=== PATIENT | male | born 1940 | race Caucasian/White ===

== ENCOUNTER 2024-10-19 18:45 | Inpatient (IN) | payer MEDICARE, BC, SELFPAY ==
[2024-10-19] VITALS (21 sets, daily range): BP systolic 92–139; BP diastolic 57–110; BMI 36.3
[2024-10-19] MEDS: LOW STRENGTH ASPIRIN 324 MG PO (07:20)
--- NOTE | 2024-10-19 09:56 | ITS.CL.CATH ---
Lathe Machinist - Catheterization
Cardiac Catheterization
Procedure Report:
RIGHT HEART CATHETERIZATION
Date of Procedure: October 19, 2023
Referring: Malik SAMUEL
Referring Physician: Dr. Porfirio Cummins
Indication: The patient is an 84-year-old man with a past medical history significant for prostate cancer who is referred for coronary angiography in preparation for TAVR. The patient has severe aortic stenosis and recently has developed increasing
exertional dyspnea over the past couple months. Over the last 3 weeks he has developed worsening lower extremity swelling as well as a nonproductive cough. He was given low-dose Lasix at his last office visit and says it has not helped.
ACCESS: The patient was prepped and draped in usual sterile fashion. A 5 [place]uvian sheath was then placed in the right brachial vein using the same technique.
HEMODYNAMIC FINDINGS (mmHg):
RA(a,v,m): 20, 20, 18
RV(s/d,EDP): 72/14, 17
PA(s/d/m): 72/36, 50
PCWP(a,v,m): 34, 46, 40
Oxygen Saturations (mg/dl):
PA: 53% on room air
LV: 93% by pulse oximetry on room air
Hbg (g/dL): 14.0
Pascual
CO (liters/minute): 3.3
CI (liters/minute/m2): 1.5
Fluoroscopy Time (min): 2.5
Radiation Dose (mGy): 36
DAP (Gy.cm2): 3.7
Closure device: None
Complications: None
ASSESSMENT:
1: Decompensated heart failure with severe pulmonary hypertension and elevated left ventricular filling pressures with a wedge of 40 with large V waves.
CONCLUSIONS and RECOMMENDATIONS:
1: Admit for IV diuresis. Will hold off on coronary angiography and tentatively plan to return for coronary angiography after 2 days of IV diuresis.
Sajan Black M.D.
Copy to: Itz SAMUEL
--- NOTE | 2024-10-19 10:45 | PTCARENOTE ---
1011-patient bradycardic, heart rate 30's-Wenckebach. Patient asymptomatic. [employer] notified and aware.
1015-patient had a 3 beat run of VT. Asymptomatic.
1018-Patient began to cough and heart rate dropped-EKG obtained. [employer] notified and aware. At bedside.
Gallo Black in to see patient while in radial lounge. No new orders at this time.
1100-Dr. Ibanez, admitting MD at bedside.
--- NOTE | 2024-10-19 14:14 | HPS.HSE ---
Family Physician
-
Family Physician: NOT KNOW UNKNOWN - PT DOES
Chief Complaint
-
Shortness of breath
History of Present Illness
84 y/o male with past medical history of hypertension and benign prostatic hyperplasia, who was recently found to need a TAVR, had pre-TAVR evaluation, more specifically, cardiac cath today which showed decompensated heart failure with severe
pulmonary hypertension and elevated left ventricular filling pressures with a wedge of 40 with large V waves. Patient has been having edema and shortness of breath, denied any chest pain or any complaints when he was seen.
Medical History
Past Medical History
Past Medical History: Reports HTN and Other (BPH)
Past Surgical History: Reports None
Social History
Tobacco: Former Smoker
Alcohol: None
Drug: None
Family History
Family History: Not pertinent
Allergies / Home Medications
Allergies reflects when Allergies were last updated in [facility].
Home Medications with original date entered in [facility]
Allergy/Medication List:
Allergies
Allergy/AdvReac Type Severity Reaction Status Date / Time
No Known Drug Allergies Allergy Unknown Verified 10/19/24 06:59
Home Medications
L-Qgcrni-Plmmcue 600 mg PO DAILY 10/19/24
Vision Essentials 1 tab PO DAILY 10/19/24
alprazolam 0.5 mg tablet 0.5 mg PO BID PRN anxiety 10/19/24
ascorbic acid (vitamin C) 500 mg tablet (Vitamin C) 1,500 mg PO DAILY 10/19/24
benzonatate 200 mg capsule 200 mg PO TID PRN cough 10/19/24
cholecalciferol (vitamin D3) 25 mcg (1,000 unit) capsule (Vitamin D3) 12.5 mcg PO DAILY 10/19/24
cod liver oil 1 tab PO QPM 10/19/24
finasteride 5 mg tablet 5 mg PO DAILY 10/19/24
furosemide 40 mg tablet 40 mg PO DAILY PRN swelling 10/19/24
lactobacillus combination no.8 3 billion cell capsule 1 cell PO QPM 10/19/24
loratadine 10 mg tablet 10 mg PO DAILY 10/19/24
prednisone 20 mg tablet 20 mg PO DAILY 10/19/24
quercetin 500 mg capsule 800 mg PO QPM 10/19/24
tamsulosin 0.4 mg capsule 0.4 mg PO QPM 10/19/24
vit A 7,160 unit-C 113 mg-E 100 prpv-jupr-lpwbnu tablet,delayed rel. 1 tab PO QPM 10/19/24
vit A-vit J-albp-rdcfbsau lozenges (Zinc (with Vitamins A and C) Lozenges) 1 debo PO DAILY 10/19/24
Review of Systems
-
A 12 point ROS was completed and negative except as noted: Yes
Physical Exam
Vital Signs
Vital Signs
Temp Pulse Resp BP Pulse Ox
97.6 F 71 18 121/75 97
10/19/24 06:26 10/19/24 11:41 10/19/24 06:26 10/19/24 12:43 10/19/24 11:41
Physical Exam
General: No Apparent Distress and Comfortable
HEENT: NormoCephalic and Moist mucous membranes
Respiratory: Decreased Breath Sounds
Cardiac: S1/S2 and Regular Rhythm
GI: Soft, Non Tender and Normal Bowel Sounds
Musculoskeletal: Edema, Left Lower Extremity and Edema, Right Lower Extremity
Skin: Warm and Dry
Neuro: Awake, Alert and AO x 3
Psych: Calm and Intact Judgment/Insight
Impression/Plan
-
Assessment/Plan
Decompensated heart failure with severe pulmonary hypertension and elevated left ventricular filling pressures with a wedge of 40 with large V waves
-Cath done (for pre-TAVR evaluation) today by Dr. Black which showed the findings above
-Continue IV diuresis
-Daily weights, I's and O's
-Cardiology already consulted
-Repeat cath anticipated in 2 days after diuresis, per Dr. Black
Aortic Stenosis
-Avoid Hypotension
Hypertension
-On Finasteride and Flomax below
-Used to be on Lisinopril, but no longer is on it due to hypotension
Benign Prostatic Hyperplasia
-Continue home Finasteride
-Continue home Flomax
DVT Prophylaxis: Lovenox
Code Status: Full Code
[2024-10-19] MEDS: LASIX 20 MG IV (16:10)
--- NOTE | 2024-10-19 17:34 | PTCARENOTE ---
1615-monitoring manager reading AFIb. Heart rate irregular. EKG obtained. Tele-SA with marked SA with 1st degree AV block with occasional PVC's. MD notified via TT. No new orders.
[2024-10-19 18:58] LABS: Blood Urea Nitrogen 34 mg/dl (9-20); Calcium 10.6 mg/dl (8.4-10.2); Carbon Dioxide 31 mmol/L (22-30); Chloride 97 mmol/L (98-107); Estimated Creatinine Clearance 60 ml/min; Glucose 165 mg/dl (70-99); Potassium 4.5 mmol/L (3.5-5.1); Sodium 134 mmol/L (135-145); eGFR > 60.00
[2024-10-19] MEDS: FLOMAX 0.4 MG PO (20:21)
[2024-10-19] MEDS: VISBIOME 1 CAP PO (20:22)
[2024-10-19] MEDS: DELTASONE 40 MG PO (20:22)
[2024-10-19] MEDS: OCUVITE SOFTGEL 1 CAP PO (20:22)
[2024-10-19] MEDS: XANAX 0.5 MG PO (22:32)
--- NOTE | 2024-10-20 01:36 | PTCARENOTE ---
Patient AAOx4 and ambulating self in room, and denies any SOB. Sating 96-97% RA, and has an occasional moist cough. Lungs clear throughout. Tele monitor shows Sinus rodrigo w/ 1st AV block and sinus arrhythmia w/ occasional PVCs. HR in the 50-60's at
rest. Tele monitor alarms, and HR briefly drops to 38 and goes back up to baseline HR. Patient laying in bed, asymptomatic. Right brachial dressing C/D/I, and + right radial pulse. Patient voiding in urinal w/out difficulty. POC ongoing. Call reynolds
within reach.
[2024-10-20 04:06] VITALS: BP 104/74
[2024-10-20 04:13] VITALS: BMI 34.4
[2024-10-20 05:04] LABS: Blood Urea Nitrogen 32 mg/dl (9-20); Calcium 10.1 mg/dl (8.4-10.2); Carbon Dioxide 28 mmol/L (22-30); Chloride 100 mmol/L (98-107); Estimated Creatinine Clearance 74 ml/min; Glucose 145 mg/dl (70-99); HDL Cholesterol 62 mg/dl; LDL Cholesterol, Calculated 77 mg/dl; Magnesium 2.4 mg/dl (1.6-2.3); Potassium 4.7 mmol/L (3.5-5.1); Sodium 135 mmol/L (135-145); Total Cholesterol 154 mg/dl (50-199); Triglyceride 77 mg/dl (10-149); Very Low Density Lipoprotein 15 mg/dl (0-30); eGFR > 60.00
[2024-10-20 05:05] LABS: Hematocrit 42.8 % (39.0-52.0); Hemoglobin 14.2 g/dL (13.0-18.0); Mean Corp Hgb Conc. 33.2 g/dL (33.0-37.0); Mean Corpuscular Hgb 31.1 pg (27.0-31.0); Mean Corpuscular Volume 93.9 fL (80.0-94.0); Mean Platelet Volume 10.5 fL (7.4-10.4); Platelet Count 241 10^3/uL (130-400); Red Blood Cell Count 4.56 10^6/uL (4.70-6.10); Red Cell Dist. Width 15.7 % (11.5-14.5); White Blood Cell Count 8.2 10^3/uL (4.8-10.8)
--- NOTE | 2024-10-20 06:53 | W.PN.HOSP.TC ---
Today's Communication/Plan
-
.
Assessment / Plan
Assessment / Plan
Physical Exam
General: No Apparent Distress and Comfortable
HEENT: NormoCephalic and Moist mucous membranes
Respiratory: Decreased Breath Sounds
Cardiac: S1/S2 and Regular Rhythm
GI: Soft, Non Tender and Normal Bowel Sounds
Musculoskeletal: Edema, Left Lower Extremity and Edema, Right Lower Extremity
Skin: Warm and Dry
Neuro: Awake, Alert and AO x 3
Psych: Calm and Intact Judgment/Insight
84-year-old man with a past medical history significant for prostate cancer who was referred for coronary angiography in preparation for TAVR. The patient has severe aortic stenosis and recently has developed increasing exertional dyspnea over the
past couple months. Over the last 3 weeks he has developed worsening lower extremity swelling as well as a nonproductive cough. He was given low-dose Lasix at his last office visi.
#Acute new onset heart failure with preserved EF presented as acute decompensated heart failure with severe pulmonary hypertension and elevated left ventricular filling pressures with a wedge of 40 with large V waves
-Cath done 10/19/24 (for pre-TAVR evaluation) today by Dr. Black which showed the findings above
-Continue IV diuresis
-Daily weights, I's and O's
-Cardiology already consulted
-Repeat cath anticipated in 2 days after diuresis, per Dr. Black
Hyponatremia
Hypercalcemia, resolved
Aortic Stenosis
-Avoid Hypotension
Hypertension
Hx of Prostate cancer/ Benign Prostatic Hyperplasia
-On Finasteride and Flomax below
-Used to be on Lisinopril, but no longer is on it due to hypotension
-Continue home Finasteride
-Continue home Flomax
Total time spent to see the patient, examine the patient, review data and lab results, discuss treatment plan with patient, nursing staff around 55 minutes
Anticipated Discharge: 24 - 48 hours
Subjective/Interval History
-
Date of Service: October 20, 2024
No chest pain
No sob
Objective Data
-
Labs:
Laboratory Results
10/19/24 10/20/24
18:33 04:12
WBC 8.2
Hgb 14.2
Hct 42.8
Plt Count 241
Sodium 134 L 135
Potassium 4.5 4.7
Chloride 97 L 100
Carbon Dioxide 31 H 28
BUN 34 H 32 H
Creatinine 1.0 0.8
Glucose 165 H 145 H
Calcium 10.6 H 10.1
Vital Signs:
Vital Signs
Temp Pulse Resp BP Pulse Ox
97.9 F 59 20 104/74 94
10/20/24 04:06 10/20/24 05:00 10/20/24 04:06 10/20/24 04:06 10/20/24 04:06
I&O
10/18/24 10/19/24 10/20/24
06:59 06:59 06:59
Intake Total 840 / 840
Output Total 4050 / 4050
Balance -3210 / -3210
[2024-10-20 07:07] VITALS: BP 121/73
[2024-10-20] MEDS: PROSCAR 5 MG PO (08:09)
[2024-10-20] MEDS: LOW STRENGTH ASPIRIN 81 MG PO (08:09)
[2024-10-20] MEDS: CLARITIN 10 MG PO (08:10)
[2024-10-20] MEDS: VITAMIN C 1500 MG PO (08:11)
[2024-10-20] MEDS: DELTASONE 20 MG PO (08:11)
[2024-10-20] MEDS: LASIX 20 MG IV ×2 (09:06→16:04)
--- NOTE | 2024-10-20 09:47 | PTCARENOTE ---
Rec'd pt this shift awake and alert sitting in chair. Pt denies pain, denies sob. AM meds given. Pt NSR on monitor. See worklist for VS/I and O and assessments.
--- NOTE | 2024-10-20 10:34 | CARDSERVDEF ---
Echocardiogram with Definity completed after protocol screening completed. Allergies verified.
Patent IV site: __Left arm cephalic 20 G PC ( in patient)___
IV site flushed with 0.9% NaCl pre and post administration.
Diluted bolus method utilized to enhance visualization of ventricular claros.
Total volume given: 4____ mL
Patient tolerated all procedures well without complications.
[2024-10-20] MEDS: VITAMIN D3 (cholecalciferol) 12.5 MCG PO (11:02)
--- NOTE | 2024-10-20 11:37 | W.PN.CARDCBS ---
Addendum entered and electronically signed by Vasquez Mcgrath MD 10/20/24 12:29:
I saw and examined the patient.
The Hip Hop Artist's note was reviewed and I agree with the note.
Comment:
GEN: No distress, awake, Ox3
HEENT: supple, anicteric, mmm
LUNGS: CTA, no wheezes/rales
CV: Reg, S1/S2, 2/6 syst LSB, S3+
ABD: soft, BS+, NT/ND
EXT: ++ edema
NEURO: Gross non-focal
SKIN: No rash
Plan:
He is diuresing well. Continue Lasix 20 mg IV twice daily today and then 40 mg daily upon discharge.
Continue Coreg 3.125 mg p.o. twice daily. Plan is for left heart catheterization in AM.
Will check on cost of Farxiga.
Creatinine is stable at 0.8. Check echo today.
Will need CT scan as outpatient after cardiac cath for TAVR evaluation.
Original Note:
Today's Communication / Plan
-
Cont Lasix 20 mg IV BID and then likely Lasix 40 mg PO daily upon d/c
Starting Coreg 3.125 mg BID
Check HgbA1c
Check cost of Farxiga
Eventually add lisinopril following acute diuresis
LHC in AM
Impression / Plan
-
PCP: Dr. Itz Nash
Cardiology: Dr. Cummins
Impression:
Admitted after RH for acute HFpEF 10/19/24
EF 50-55% by echo 08/09/24
Severe peak/mean 67.9/45.3 by echo at [facility] 08/09/24
HTN
BPH
h/o prostate cancer
Hyperglycemia
Echo 08/09/24: GVH study, EF 50 to 55%, mild to moderate concentric LVH, normal RV size and function, normal LA/RA, severe with peak/mean 67.9/45.3 mmHg and NICKI 0.58 cm sq
Echo 10/20/24: Report pending
Plan:
-Patient had an elective R/LHC scheduled at on 10/19/2024, but upon arrival he appeared to be in acute HFpEF and had RHC only which showed PCWP of 40 mmHg and so patient was admitted for acute HF and the LHC was deferred. R/LHC as part of TAVR
workup.
-Patient weight recorded at 221 lbs on day of admission 10/19/2024 and weight is down to 209 lbs on 10/20/2024, this might be possible as patient is -4 L in the last 24 hours with Lasix 20 mg IV BID.
-Med rec lists Lasix 40 mg PO daily prior to admission. Patient says Lasix was started just prior to planned cath and subsequent admission, but that he did not notice any increase in urine output and describes significant bloating and bendopnea.
Based on impressive diuresis patient can probably continue with Lasix 40 mg PO daily upon d/c.
-Patient was not taking cardioselective beta-josefina prior to admission. Will add Coreg 3.125 mg BID
-Patient was not taking HAYDE/ARB prior to admission
-Patient was not taking SGLT2 prior to admission. Patient has been hyperglycemia throughout admission. Check HgbA1c, no known diagnosis of DM 2. Would likely benefit from addition of Farxiga 10 mg daily. Will ask CM to check on cost.
-LDL 77. Patient was not taking a statin prior to admission. Pending results of C could add statin.
-Plan is for [facility] 10/21/24
-52 min in coordination of care and face to face
Progress Note - Parole Agent
Subjective
Date of Service: October 20, 2024
He feels dramatically better, bloating, bendopnea and LE edema have all improved.
Objective
Labs:
10/20/24 04:12
10/20/24 04:12
Labs
Hgb 14.2 g/dL (13.0-18.0) 10/20/24 04:12
Hct 42.8 % (39.0-52.0) 10/20/24 04:12
Plt Count 241 10^3/uL (130-400) 10/20/24 04:12
Sodium 135 mmol/L (135-145) 10/20/24 04:12
Potassium 4.7 mmol/L (3.5-5.1) 10/20/24 04:12
BUN 32 mg/dl (9-20) H 10/20/24 04:12
Creatinine 0.8 mg/dL (0.7-1.3) 10/20/24 04:12
Glucose 145 mg/dl (70-99) H 10/20/24 04:12
Vital Signs and I&O:
Vital Signs
Temp Pulse Resp BP Pulse Ox
97.6 F 74 20 121/73 97
10/20/24 07:04 10/20/24 09:06 10/20/24 07:04 10/20/24 09:06 10/20/24 09:35
Vital Signs
Temp Pulse Resp BP Pulse Ox
97.6 F 74 20 121/73 97
10/20/24 07:04 10/20/24 09:06 10/20/24 07:04 10/20/24 09:06 10/20/24 09:35
Intake & Output
10/18/24 10/19/24 10/20/24 10/21/24
06:59 06:59 06:59 06:59
Intake Total 840 / 840 680 / 680
Output Total 4050 / 4050 1680 / 1680
Balance -3210 / -3210 -1000 / -1000
Physical Exam
Physical Exam
GEN: NAD. AAOx3
HEENT: EOMI, MMM
LUNGS: RA. No audible wheeze
CV: SR on tele.
ABD: ND
EXT: +2 B/L LE edema
NEURO: Gross non-focal
SKIN: No rash
[2024-10-20 11:45] VITALS: BP 107/73
--- NOTE | 2024-10-20 11:55 | CM ---
CM following for DC planning needs.
Met w/ patient at bedside to complete initial assessment.
Pt. resides w/ spouse in a private home. He is functionally indep. at baseline w/ ADLs, mobility without the use of any assisted device.
Pt. anticipates to return back for a TAVR procedure. We discussed this briefly + CM role.
Pt. has RX plan and uses [facility] in [place] for prescription needs.
Antic. DC plan is for home without needs.
Will cont. to follow.
--- NOTE | 2024-10-20 13:24 | CM ---
Artem Orosco thru patient's pharmacy, [facility] in [phone]. Estimated cost is $7/mo.
TT to ANNIE to update
[2024-10-20 15:22] LABS: Glycohemoglobin (HgbA1c) 6.3 % (4.0-5.6)
[2024-10-20 15:52] VITALS: BP 98/65
[2024-10-20] MEDS: VISBIOME 1 CAP PO (17:16)
[2024-10-20] MEDS: OCUVITE SOFTGEL 1 CAP PO (17:16)
[2024-10-20] MEDS: FLOMAX 0.4 MG PO (17:16)
[2024-10-20 19:47] VITALS: BP 94/60
[2024-10-20] MEDS: XANAX 0.5 MG PO (21:06)
[2024-10-20 22:02] VITALS: BP 100/61
[2024-10-21] VITALS (9 sets, daily range): BP systolic 96–114; BP diastolic 47–86; BMI 33.3
[2024-10-21 05:42] LABS: Blood Urea Nitrogen 34 mg/dl (9-20); Calcium 10.4 mg/dl (8.4-10.2); Carbon Dioxide 29 mmol/L (22-30); Chloride 99 mmol/L (98-107); Estimated Creatinine Clearance 64 ml/min; Glucose 110 mg/dl (70-99); Magnesium 2.6 mg/dl (1.6-2.3); Potassium 4.3 mmol/L (3.5-5.1); Sodium 134 mmol/L (135-145); eGFR > 60.00
--- NOTE | 2024-10-21 06:39 | W.PN.HOSP.TC ---
Today's Communication/Plan
-
Cath today, NPO this morning
Assessment / Plan
Assessment / Plan
Physical Exam
General: No Apparent Distress and Comfortable
HEENT: NormoCephalic and Moist mucous membranes
Respiratory: Decreased Breath Sounds
Cardiac: S1/S2 and Regular Rhythm
GI: Soft, Non Tender and Normal Bowel Sounds
Musculoskeletal: Edema, less Left Lower Extremity and Edema, less Right Lower Extremity
Skin: Warm and Dry
Neuro: Awake, Alert and AO x 3
Psych: Calm and Intact Judgment/Insight
84-year-old man with a past medical history significant for prostate cancer who was referred for coronary angiography in preparation for TAVR. The patient has severe aortic stenosis and recently has developed increasing exertional dyspnea over the
past couple months. Over the last 3 weeks he has developed worsening lower extremity swelling as well as a nonproductive cough. He was given low-dose Lasix at his last office visi.
#Acute new onset heart failure with preserved EF presented as acute decompensated heart failure with severe pulmonary hypertension and elevated left ventricular filling pressures with a wedge of 40 with large V waves
-Cath done 10/19/24 (for pre-TAVR evaluation) by Dr. Black
-Continue IV diuresis
-Daily weights, I's and O's
- lost weight > 7 kg
-Cardiology already consulted
-Repeat cath 10/21, NPO this morning
#Hyponatremia
#Hypercalcemia, mild
Recommend OP work up
#Aortic Stenosis
-Avoid Hypotension
# primary Hypertension
# Hx of Prostate cancer/ Benign Prostatic Hyperplasia
-On Finasteride and Flomax below
-Used to be on Lisinopril, but no longer is on it due to hypotension
-Continue home Finasteride
-Continue home Flomax
Total time spent to see the patient, examine the patient, review data and lab results, discuss treatment plan with patient, nursing staff around 55 minutes
Anticipated Discharge: Within 24 hours
Subjective/Interval History
-
Date of Service: October 21, 2024
no sob
No chest pain
Objective Data
-
Labs:
Laboratory Results
10/21/24
04:30
Sodium 134 L
Potassium 4.3
Chloride 99
Carbon Dioxide 29
BUN 34 H
Creatinine 0.9
Glucose 110 H
Calcium 10.4 H
Vital Signs:
Vital Signs
Temp Pulse Resp BP Pulse Ox
98.3 F 69 16 103/47 94
10/21/24 04:24 10/21/24 05:00 10/21/24 04:24 10/21/24 04:24 10/21/24 04:24
I&O
10/19/24 10/20/24 10/21/24
06:59 06:59 06:59
Intake Total 840 / 840 1160 / 1160
Output Total 4050 / 4050 4080 / 4080
Balance -3210 / -3210 -2920 / -2920
[2024-10-21] MEDS: LOW STRENGTH ASPIRIN 81 MG PO (09:14)
[2024-10-21] MEDS: LASIX 20 MG IV ×2 (09:15→17:47)
[2024-10-21] MEDS: PROSCAR 5 MG PO (09:15)
[2024-10-21] MEDS: DELTASONE 20 MG PO (09:15)
[2024-10-21] MEDS: FLUSH (NSS) 2 FLUSH IV ×2 (09:15→17:47)
--- NOTE | 2024-10-21 14:22 | PTCARENOTE ---
Report given to [place] in the dental lab technician. Pt taken in his bed to lab associate, at bedside. Plan of care ongoing.
--- NOTE | 2024-10-21 16:03 | ITS.CL.CATH ---
Blockers Skiver - Catheterization
Cardiac Catheterization
Procedure Report:
RIGHT AND LEFT HEART CATHETERIZATION
Date of Procedure: October 21, 2023
Procedures performed:
1: Coronary angiography
2: Left ventricular hemodynamic assessment
3: Right heart catheterization
Referring: Malik SAMUEL
Referring Physician: Dr. Porfirio Cummins
Indication: The patient is an 84-year-old man with a past medical history significant for prostate cancer who is referred for coronary angiography in preparation for TAVR. The patient has severe aortic stenosis and recently has developed increasing
exertional dyspnea over the past couple months. Over the last 3 weeks he has developed worsening lower extremity swelling as well as a nonproductive cough. He was given low-dose Lasix at his last office visit and says it has not helped.
ACCESS: The patient was prepped and draped in usual sterile fashion. A 6 German sheath was placed in the right radial artery using the Seldinger over the wire technique. A 5 German sheath was then placed in the right brachial femoral vein using
the same technique.
HEMODYNAMIC FINDINGS (mmHg):
RA(a,v,m): 9, 6, 5
RV(s/d,EDP): 53/4, 7
PA(s/d/m): 53/20, 33
PCWP(a,v,m): 25, 32, 25
LV(s/d,EDP): 145/8, 16
Ao(s/d,m): 98/57, 71
Mean aortic valve gradient on pullback 35 mmHg
Oxygen Saturations (mg/dl):
PA: 66% on 2 L of oxygen by nasal cannula
LV: 95% on 2 L of oxygen by nasal cannula
Cardiac Output/Index (l/min / l/min/m2):
Estimated Pascual Method: 3.3 / 1.7
VALVE HEMODYNAMICS:
No significant aortic or mitral valve stenosis.
ANGIOGRAPHIC FINDINGS:
Single-plane Left Ventriculography in [place] Projection: Not done. Echo performed this admission.
Coronary Angiography:
Dominance: Right
Left Main: Normal
Left Anterior Descending: The left anterior descending artery is a medium to large caliber vessel that gives rise to 2 major medium caliber diagonal branches. These vessels have mild luminal irregularities with no focal obstructive disease and
normal flow.
Left Circumflex: The left circumflex is a medium caliber nondominant system that gives rise to 2 large obtuse marginal branches which are widely patent.
Right Coronary: The right coronary artery is a large-caliber dominant vessel that gives rise to a medium caliber posterior descending artery and small posterior left ventricular branch. These vessels appear angiographically normal.
Fluoroscopy Time (min): 6.0
Radiation Dose (mGy): 373
DAP (Gy.cm2): 46
Closure device: None. A TR band was applied for hemostasis at the right wrist. The brachial vein groin sheath will be pulled with manual pressure for hemostasis.
Complications: None.
ASSESSMENT:
1: Mild nonobstructive coronary artery disease.
2: Moderately elevated pulmonary pressures improved post diuresis with mildly elevated left ventricular filling pressures.
3: Severe aortic valvular stenosis.
CONCLUSIONS and RECOMMENDATIONS:
1: Proceed with TAVR evaluation.
2: Continue IV diuresis overnight and plan to send the patient home on Lasix 40 mg daily following daily weights.
Sajan Black M.D.
Copy to: Malik SAMUEL
--- NOTE | 2024-10-21 16:12 | CONSULT.STRU ---
Consultation
-
Date/Time Consultation Requested: 10/21/2024
Date/Time Consultation Performed: 10/21/2024
Requesting Provider: Sajan Black MD
Performing Provider: LIZZIE Kerr
Reason for Consultation: /TAVR
Patient History
Physicians
Family Physician: LIZZIE Gunter
Outpatient Computational Geneticist: Porfirio Cummins MD
Primary Computational Geneticist: Porfirio Cummins MD
History of Present Illness
Mr. Russ is a very pleasant 84-year-old man with a past medical history significant for prostate cancer who was referred for coronary angiography in preparation for TAVR. The patient has severe aortic stenosis and recently developed increasing
exertional dyspnea over the past couple months. Over the last 3 weeks he has developed worsening lower extremity swelling as well as a nonproductive cough. He was given low-dose Lasix at his last office visit and says it has not helped. Patient
presented to the catheterization lab in decompensated heart failure, the coronary angiography was placed on hold and the patient was admitted for IV diuresis. Echocardiogram was repeated and is significant for EF 40-45%, AV P/M 52/35, SV 47, DI 0.3,
no AI, MAC, mild MR, Mild-moderate TR, PAP 49. Discussed the pathophysiology and treatment options of aortic stenosis including SAVR and TAVR. Explained the TAVR evaluation process comprising of CT scan, CT surgical consult, dental clearance, and a
heart team discussion. TAVR booklet, contact information, prescriptions, and appointments given to patient. Allowed for and answered questions at bedside..
Past Medical History
Past Medical History: Cancer (prostate), CHF, HTN, Valvular Disease (aortic stenosis) and Other (pneumonia d/t COVID, severe sepsis, acute UTI)
Past Surgical History
Past Surgical History: Tonsilectomy
Family History
Mother: N/A
Father: N/A
Social History
Alcohol: Occasional
Drug: None
Tobacco: Former Smoker
Personal:
Living: With Spouse
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
Allergies
Allergy/AdvReac Type Severity Reaction Status Date / Time
No Known Drug Allergies Allergy Unknown Verified 10/19/24 06:59
Home Medications
�Medication �Instructions �Recorded �Confirmed �Type
H-Whwjlb-Tzsjatl 600 mg PO DAILY 10/19/24 10/19/24 History
Vision Essentials 1 tab PO DAILY 10/19/24 10/19/24 History
alprazolam 0.5 mg tablet 0.5 mg PO BID PRN anxiety 10/19/24 10/19/24 History
ascorbic acid (vitamin C) 500 mg 1,500 mg PO DAILY Supplement 10/19/24 10/19/24 History
tablet (Vitamin C)
benzonatate 200 mg capsule 200 mg PO TID PRN cough 10/19/24 10/19/24 History
cholecalciferol (vitamin D3) 25 12.5 mcg PO DAILY Supplement 10/19/24 10/19/24 History
mcg (1,000 unit) capsule (Vitamin
D3)
cod liver oil 1 tab PO QPM 10/19/24 10/19/24 History
finasteride 5 mg tablet 5 mg PO DAILY Urinary Issue 10/19/24 10/19/24 History
furosemide 40 mg tablet 40 mg PO DAILY PRN swelling 10/19/24 10/19/24 History
lactobacillus combination no.8 3 1 cell PO QPM 10/19/24 10/19/24 History
billion cell capsule
loratadine 10 mg tablet 10 mg PO DAILY Allergies 10/19/24 10/19/24 History
prednisone 20 mg tablet 20 mg PO DAILY 10/19/24 10/19/24 History
quercetin 500 mg capsule 800 mg PO QPM 10/19/24 10/19/24 History
tamsulosin 0.4 mg capsule 0.4 mg PO QPM 10/19/24 10/19/24 History
vit A 7,160 unit-C 113 mg-E 100 1 tab PO QPM 10/19/24 10/19/24 History
ftde-tlgf-racsgw tablet,delayed
rel.
vit A-vit R-htmz-ezbqfmqz lozenges 1 debo PO DAILY 10/19/24 10/19/24 History
(Zinc (with Vitamins A and C)
Lozenges)
dapagliflozin propanediol 10 mg 10 mg PO DAILY Heart Failure #30 10/20/24 Rx
tablet (Farxiga) tabs
STS%
STS %: 3.72
Review of Systems
-
History Source: Patient
General: Reports Weight Gain and Fatigue
HEENT: Reports No Symptoms
Respiratory: Reports SOB and BARLOW
Cardiac: Reports Edema (lower extremity)
Abdomen/GI: Reports No Symptoms
: Reports No Symptoms
Musculoskeletal: Reports No Symptoms
Skin: Reports No Symptoms
Neurological: Reports No Symptoms
Vascular: Reports No Symptoms
Physical Exam
Vital Signs
Temp 98.3 F 10/21/24 11:00
Temp route: Oral 10/21/24 11:00
Pulse 72 10/21/24 11:20
Rhythm: Normal sinus rhythm 10/21/24 07:50
With- First Degree Heart Block, PVC's Monomorphic, Sinus bradycardia 10/21/24 07:50
Resp Rate 18 10/21/24 11:00
Blood pressure 99/65 10/21/24 11:20
Blood pressure extremity used: Right upper arm 10/21/24 11:00
Position: Lying 10/21/24 11:00
MAP (cuff-Jina Monitor) 75 10/21/24 11:20
SaO2 96 10/21/24 11:00
Oxygen Mode of Delivery Room air 10/21/24 07:50
Can the patient verbally communicate their pain? Yes 10/21/24 07:50
Actual Weight 92.1 kg 10/21/24 04:32
Body Mass Index (BMI) 33.3 10/21/24 04:32
Labs
10/20/24 04:12
10/21/24 04:30
Hemoglobin A1c 6.3 % (4.0-5.6) H 10/20/24 04:12
Diagnostic Studies
Procedure Type:�Isolated AVR
Perioperative Outcome Estimate %
Operative Mortality 3.72%
Morbidity & Mortality 15.9%
Stroke 1.2%
Renal Failure 3.43%
Reoperation 3.66%
Prolonged Ventilation 10.9%
Deep Sternal Wound Infection 0.098%
Long Hospital Stay (>14 days) 8.4%
Short Hospital Stay (<6 days)* 24.3%
ECHOCARDIOGRAM 10/20/2024:
CONCLUSIONS
1. Technically difficult study - Definity used.
2. Normal left ventricular size with mildly reduced left ventricular systolic
function. Mid to distal anterior and anterolateral hypokinesis. Estimated
left ventricular ejection fraction is 45 to 50% by visual estimation. Stage III
diastolic dysfunction suggestive of restrictive filling pattern and increased
filling pressures.
3. Normal right ventricular size and systolic function.
4. Mitral annular calcification with mild mitral regurgitation.
5. Thickened aortic valve with restricted leaflet motion. Moderate aortic
stenosis. Peak/mean gradients across the aortic valve are 52/35 mmHg
respectively. No aortic regurgitation is seen. Stroke-volume index is 47
mL/m2. Dimensionless index 0.3.
6. Mild to moderate tricuspid regurgitation with estimated pulmonary artery
systolic pressure 49 mmHg, assuming a right atrial pressure of 8 mmHg.
7. Trace pulmonic regurgitation.
8. No pericardial effusion.
9. Moderately dilated left atrium.
CARDIAC CATHETERIZATION 10/21/2024:
ASSESSMENT:
1: Mild nonobstructive coronary artery disease.
2: Moderately elevated pulmonary pressures improved post diuresis with mildly elevated left ventricular filling pressures.
3: Severe aortic valvular stenosis.
CONCLUSIONS and RECOMMENDATIONS:
1: Proceed with TAVR evaluation.
2: Continue IV diuresis overnight and plan to send the patient home on Lasix 40 mg daily following daily weights.
Exam
General: Well Developed, Well Nourished, No Apparent Distress and Comfortable
HEENT: Normocephalic
Neck: Trachea Midline
Respiratory: Clear and Other (Decreased RLL)
Cardiac: Murmur (II/ JAY)
GI: Soft and Non Tender
Rectal: Deferred by Provider
Skin: Warm and Dry
Neuro: Awake, Alert, Oriented and AO x 3
Extremities: Lower Level Edema
Psych: Calm
Assessment / Plan
-
Aortic stenosis
Continue TAVR Evaluation
Trend creatinine (Rx given)
TAVR CT scan (11/07)
CT surgical consult (MPT 11/08)
KCCQ12 and frailty testing at consult
Dental clearance
Will need to start aspirin for TAVR
Heart team discussion
Data Reviewed
-
EKG: Tracing Personally Visualized and interpreted
Mill Helper: Report Reviewed by me and Discussed with Physician
Echo: Report Reviewed by me and Discussed with Physician
Labs: Labs Reviewed by me
Old Records: Reviewed (office notes)
Total Time Spent with Patient (in minutes): 45
--- NOTE | 2024-10-21 16:28 | PTCARENOTE ---
Rec'd report back from [place] in the cardiac cath lab radiology technologist. Rec'd pt back AAOx3 w/no c/o CP or SOB. Pt w/R brachial site w/dressing C/D/I & R radial site w/R-Band in place w/no signs or symptoms of bleeding or hematoma at either site. VS stable w/HR in the
70's. Pt w/call reynolds within reach & plan of care ongoing.
[2024-10-21] MEDS: VISBIOME 1 CAP PO (17:47)
[2024-10-21] MEDS: FLOMAX 0.4 MG PO (17:47)
--- NOTE | 2024-10-21 18:13 | W.PN.CARDCBS ---
Today's Communication / Plan
-
Increase Lasix to 40 mg IV twice daily
Add Farxiga
Impression / Plan
-
PCP: Dr. Itz Nash
Cardiology: Dr. Cummins
Impression:
Admitted after RHC for acute HFpEF 10/19/24
EF 50-55% by echo 08/09/24
Severe peak/mean 67.9/45.3 by echo at [facility] 08/09/24
HTN
BPH
h/o prostate cancer
Hyperglycemia
Echo 08/09/24: GVH study, EF 50 to 55%, mild to moderate concentric LVH, normal RV size and function, normal LA/RA, severe with peak/mean 67.9/45.3 mmHg and NICKI 0.58 cm sq
Echo 10/20/24: LVEF 45-50%
Plan:
-Patient had an elective R/LHC scheduled at on 10/19/2024, but upon arrival he appeared to be in acute HFpEF and had RHC only which showed PCWP of 40 mmHg and so patient was admitted for acute HF and the LHC was deferred
-LHC performed today 10/21 as part of TAVR w/up which revealed non-obstructive CAD and elevated filling pressures
-Symptomatically improved with IV lasix, but still volume overloaded based on exam and invasive hemodynamics
-Continue IV lasix, will increase to 40mg IV BID
-Monitor renal function, electrolytes and daily weights
-Mildly reduced LVEF on echo here, but BP is borderline which mades addition of GDMT challenging
-Farxiga is affordable per CM note, plan to start here.
Progress Note - Assistant Child Care Teacher
Subjective
Date of Service: October 21, 2024, patient seen on morning rounds
No acute overnight events. Patient tells me that his lower extremity edema significantly improved here with IV diuresis.
Objective
Labs:
10/20/24 04:12
10/21/24 04:30
Labs
Hgb 14.2 g/dL (13.0-18.0) 10/20/24 04:12
Hct 42.8 % (39.0-52.0) 10/20/24 04:12
Plt Count 241 10^3/uL (130-400) 10/20/24 04:12
Sodium 134 mmol/L (135-145) L 10/21/24 04:30
Potassium 4.3 mmol/L (3.5-5.1) 10/21/24 04:30
BUN 34 mg/dl (9-20) H 10/21/24 04:30
Creatinine 0.9 mg/dL (0.7-1.3) 10/21/24 04:30
Glucose 110 mg/dl (70-99) H 10/21/24 04:30
Vital Signs and I&O:
Vital Signs
Temp Pulse Resp BP Pulse Ox
98.3 F 72 18 99/65 96
10/21/24 11:00 10/21/24 11:20 10/21/24 11:00 10/21/24 11:20 10/21/24 11:00
Vital Signs
Temp Pulse Resp BP Pulse Ox
98.3 F 72 18 99/65 96
10/21/24 11:00 10/21/24 11:20 10/21/24 11:00 10/21/24 11:20 10/21/24 11:00
Intake & Output
10/19/24 10/20/24 10/21/24 10/22/24
06:59 06:59 06:59 06:59
Intake Total 840 / 840 1160 / 1160 1200 / 1200
Output Total 4050 / 4050 4080 / 4080 1700 / 1700
Balance -3210 / -3210 -2920 / -2920 -500 / -500
Physical Exam
Physical Exam
Gen: NAD, AAOx3
HEENT: NC/AT, sclera anicteric
Neck: Difficult to assess JVD
CV: RRR, NL s1/s2, late peaking 2/6 JAY
Lungs: CTAB on RA
Abd: S/ND
Ext: 1+ LE edema b/l
Skin: Warm, dry
Neuro: Non-focal
[2024-10-21] MEDS: XANAX 0.5 MG PO (21:34)
--- NOTE | 2024-10-22 01:48 | PTCARENOTE ---
R radial and R brachial sites CDI. Plan of care discussed- pt verbalized understanding. SR/SB w/ 1st degree- and PVCs.
[2024-10-22 03:33] VITALS: BP 109/61
[2024-10-22 04:11] VITALS: BMI 32.6
[2024-10-22 04:33] LABS: Hematocrit 45.2 % (39.0-52.0); Hemoglobin 14.8 g/dL (13.0-18.0); Mean Corp Hgb Conc. 32.7 g/dL (33.0-37.0); Mean Corpuscular Hgb 31.2 pg (27.0-31.0); Mean Corpuscular Volume 95.2 fL (80.0-94.0); Mean Platelet Volume 10.5 fL (7.4-10.4); Platelet Count 245 10^3/uL (130-400); Red Blood Cell Count 4.75 10^6/uL (4.70-6.10); White Blood Cell Count 10.8 10^3/uL (4.8-10.8)
[2024-10-22 04:49] LABS: Blood Urea Nitrogen 36 mg/dl (9-20); Calcium 10.3 mg/dl (8.4-10.2); Carbon Dioxide 32 mmol/L (22-30); Chloride 99 mmol/L (98-107); Estimated Creatinine Clearance 57 ml/min; Glucose 101 mg/dl (70-99); Potassium 4.5 mmol/L (3.5-5.1); Sodium 137 mmol/L (135-145); eGFR > 60.00
--- NOTE | 2024-10-22 06:56 | W.PN.HOSP.TC ---
Addendum entered and electronically signed by Bhargavi Drew MD 10/22/24 14:19:
Addendum
Patient was seen by parakeet raiser. Adjusted Lasix therapy. He continues to feel much better and willing to be discharged.
Total discharge time spent to see the patient, examine the patient, review data and lab results, discuss discharge plan with patient, nursing staff around 65 minutes
Original Note:
Today's Communication/Plan
-
dc if ok with cardiology
Assessment / Plan
Assessment / Plan
Physical Exam
General: No Apparent Distress and Comfortable
HEENT: NormoCephalic and Moist mucous membranes
Respiratory: Decreased Breath Sounds
Cardiac: S1/S2 and Regular Rhythm
GI: Soft, Non Tender and Normal Bowel Sounds
Musculoskeletal: Edema, less Left Lower Extremity and Edema, less Right Lower Extremity
Skin: Warm and Dry
Neuro: Awake, Alert and AO x 3
Psych: Calm and Intact Judgment/Insight
84-year-old man with a past medical history significant for prostate cancer who was referred for coronary angiography in preparation for TAVR. The patient has severe aortic stenosis and recently has developed increasing exertional dyspnea over the
past couple months. Over the last 3 weeks he has developed worsening lower extremity swelling as well as a nonproductive cough. He was given low-dose Lasix at his last office visi.
#Acute new onset heart failure with preserved EF presented as acute decompensated heart failure with severe pulmonary hypertension and elevated left ventricular filling pressures with a wedge of 40 with large V waves
-Cath done 10/19/24 (for pre-TAVR evaluation) by Dr. Black
-Continue IV diuresis
-Daily weights, I's and O's
- lost weight > 7 kg
-Cardiology already consulted
-Repeat cath 10/21, non-obstructive CAD and elevated filling pressures
#Hyponatremia
#Hypercalcemia, mild
Recommend OP work up
#Aortic Stenosis
-Avoid Hypotension
# primary Hypertension
# Hx of Prostate cancer/ Benign Prostatic Hyperplasia
-On Finasteride and Flomax below
-Used to be on Lisinopril, but no longer is on it due to hypotension
-Continue home Finasteride
-Continue home Flomax
Total time spent to see the patient, examine the patient, review data and lab results, discuss treatment plan with patient, nursing staff around 55 minutes
Anticipated Discharge: Today
Subjective/Interval History
-
Date of Service: October 22, 2024
He is doing well, wants to go home
Objective Data
-
Labs:
Laboratory Results
10/22/24
03:31
WBC 10.8
Hgb 14.8
Hct 45.2
Plt Count 245
Sodium 137
Potassium 4.5
Chloride 99
Carbon Dioxide 32 H
BUN 36 H
Creatinine 1.0
Glucose 101 H
Calcium 10.3 H
Vital Signs:
Vital Signs
Temp Pulse Resp BP Pulse Ox
97.2 F 58 18 109/61 97
10/22/24 03:40 10/22/24 03:33 10/22/24 03:40 10/22/24 03:33 10/22/24 03:40
I&O
10/20/24 10/21/24 10/22/24
06:59 06:59 06:59
Intake Total 840 / 840 1160 / 1160 1580 / 1580
Output Total 4050 / 4050 4080 / 4080 3200 / 3200
Balance -3210 / -3210 -2920 / -2920 -1620 / -1620
[2024-10-22 07:08] VITALS: BP 107/63
--- NOTE | 2024-10-22 09:19 | W.PN.CARDCBS ---
Today's Communication / Plan
-
Left heart cath results reviewed with nonobstructive CAD.
Remains volume overloaded with pulmonary capillary wedge pressure of 25 and PA pressure 53/20.
He has diuresed over 25 pounds this admission. Creatinine normal.
Okay to switch Lasix to 40 mg p.o. twice daily upon discharge.
He has intermittent heart block at times and continue to hold all AV sidney blockers.
Continue Farxiga.
Plan will be for outpatient TAVR CT.
Stable for discharge today.
Impression / Plan
-
PCP: Dr. Itz Nash
Cardiology: Dr. Cummins
Impression:
Admitted after RHC for acute HFpEF 10/19/24
EF 50-55% by echo 08/09/24
Severe peak/mean 67.9/45.3 by echo at [facility] 08/09/24
HTN
BPH
h/o prostate cancer
Hyperglycemia
Echo 08/09/24: GVH study, EF 50 to 55%, mild to moderate concentric LVH, normal RV size and function, normal LA/RA, severe with peak/mean 67.9/45.3 mmHg and NICKI 0.58 cm sq
Echo 10/20/24: LVEF 45-50%, mean aortic gradient 35, mild-mod TR, PA 49
Plan:
-Patient had an elective R/LHC scheduled at on 10/19/2024, but upon arrival he appeared to be in acute HFpEF and had RHC only which showed PCWP of 40 mmHg and so patient was admitted for acute HF and the LHC was deferred
-LHC performed today 10/21 as part of TAVR w/up which revealed non-obstructive CAD and elevated filling pressures
-He is diuresed well and weight is down 25 pounds. He still has some volume but is stable for discharge. Will switch to Lasix 40 mg p.o. twice daily. Creatinine normal
-Of note he is having some intermittent second-degree AV block and bradycardia on telemetry. He was placed on beta-josefina therapy several days ago but this has been stopped. Avoid all AV sidney blockers. Likely will need pacemaker prior to TAVR.
-Mildly reduced LVEF on echo here, but BP is borderline which mades addition of GDMT challenging. Hold on beta-josefina/HAYDE
-Farxiga is affordable per CM note, plan to start here.
Progress Note - Transportation Maintenance Worker
Subjective
Date of Service: October 22, 2024
feels much better. weigh down 20 lbs.
Objective
Labs:
10/22/24 03:31
10/22/24 03:31
Labs
Hgb 14.8 g/dL (13.0-18.0) 10/22/24 03:31
Hct 45.2 % (39.0-52.0) 10/22/24 03:31
Plt Count 245 10^3/uL (130-400) 10/22/24 03:31
Sodium 137 mmol/L (135-145) 10/22/24 03:31
Potassium 4.5 mmol/L (3.5-5.1) 10/22/24 03:31
BUN 36 mg/dl (9-20) H 10/22/24 03:31
Creatinine 1.0 mg/dL (0.7-1.3) 10/22/24 03:31
Glucose 101 mg/dl (70-99) H 10/22/24 03:31
Vital Signs and I&O:
Vital Signs
Temp Pulse Resp BP Pulse Ox
97.6 F 62 18 107/63 98
10/22/24 07:05 10/22/24 08:00 10/22/24 07:05 10/22/24 07:08 10/22/24 07:05
Vital Signs
Temp Pulse Resp BP Pulse Ox
97.6 F 62 18 107/63 98
10/22/24 07:05 10/22/24 08:00 10/22/24 07:05 10/22/24 07:08 10/22/24 07:05
Intake & Output
10/20/24 10/21/24 10/22/24 10/23/24
06:59 06:59 06:59 06:59
Intake Total 840 / 840 1160 / 1160 1580 / 1580
Output Total 4050 / 4050 4080 / 4080 3200 / 3200
Balance -3210 / -3210 -2920 / -2920 -1620 / -1620
Physical Exam
Physical Exam
GEN: No distress, awake, Ox3
HEENT: supple, anicteric, mmm
LUNGS: CTA, no wheezes/rales
CV: Reg, S1/S2, 2/6 syst LSB, no gallop
ABD: soft, BS+, NT/ND
EXT: +1 edema
NEURO: Gross non-focal
SKIN: No rash
[2024-10-22] MEDS: PROSCAR 5 MG PO (09:49)
[2024-10-22] MEDS: FARXIGA 10 MG PO (09:49)
[2024-10-22] MEDS: DELTASONE 10 MG PO (09:49)
[2024-10-22] MEDS: LASIX 40 MG IV (09:49)
[2024-10-22] MEDS: LOW STRENGTH ASPIRIN 81 MG PO (09:49)
[2024-10-22 11:49] VITALS: BP 97/58
--- NOTE | 2024-10-22 14:07 | W.DCSUMMARY ---
Discharge Summary
Discharge Data
Date of Admission: 10/19/24
Date of Discharge: 10/22/24
-
Pending Results: No
Hospital Course
84 years old male who was referred for coronary angiography in preparation for TAVR. The patient had severe aortic stenosis and recently had developed increasing exertional dyspnea over the past couple months. Over the last 3 weeks he has
developed worsening lower extremity swelling as well as a nonproductive cough. He was given low-dose Lasix at his last office visit but it did not help. Patient was given IV Lasix. He started to loose weight and decreasing edema in lower
extremities. He underwent left heart cath on 10/21/[address] Black and it showed nonobstructive CAD with pulmonary capillary wedge pressure of 25 and PA pressure 53/20. He diuresed over 25 pounds this admission. Creatinine remained normal.
Cardiology followed his progress and recommended to switch Lasix to 40 mg p.o. twice daily upon discharge. patient had intermittent heart block at times, he remained off all AV sidney blockers. He was maintained on Farxiga. He remained
hemodynamically stable and was discharged home in a stable condition.
Discharge Plan
-
Patient Disposition: Home (Routine Discharge)
Discharge Diagnosis/Procedures: acute HFpEF
Cardiac catheterization (10/19 and 10/21)
Diet: As tolerated and Low Sodium
Blood Work: PLEASE GET YOUR LAB WORK NEXT WEEK (). PLEASE FAX RESULTS TO [phone] [facility].
Others Tests: YOUR CT SCAN IS SCHEDULED FOR 11/07/2024 @ 9:30 AT [facility]. NOTHING TO EAT OR DRINK [address] SCAN. PLEASE BRING A COPY OF YOUR MEDICATION LIST. YOU MAY TAKE YOUR MORNNG MEDICATIONS PRIOR TO COMING IN.
Specialty Instructions: Weigh Daily- Call MD for wt gain/loss 3 lbs overnight/5 lbs in 1 week
Instructions: *PCP/Other Milk Handler Heart Failure Instructions
Stand Alone Forms: DC Instructions- Cath/EP Lab
Referrals:
Derick Arce MD [Active] - 11/08/24 10:30 am
Porfirio Cummins DO [Affiliate] - 11/16/24 10:45 am (Cardiology followup appointment)
Itz Nash CRNP [Primary Care Provider] -
Prescriptions:
New
dapagliflozin propanediol [Farxiga] 10 mg tablet
10 mg PO DAILY Qty: 30 6RF
aspirin 81 mg Tablet,Chewable
81 mg PO DAILY Qty: 30 0RF
Continued
benzonatate 200 mg Capsule
200 mg PO TID PRN (Reason: cough)
alprazolam 0.5 mg Tablet
0.5 mg PO BID PRN (Reason: anxiety)
tamsulosin 0.4 mg Capsule
0.4 mg PO QPM
finasteride 5 mg Tablet
5 mg PO DAILY
loratadine 10 mg Tablet
10 mg PO DAILY
cod liver oil Tablet,Chewable
1 tab PO QPM
cholecalciferol (vitamin D3) [Vitamin D3] 25 mcg (1,000 unit) Capsule
12.5 mcg PO DAILY
Zinc (with A and C) Lozenges Lozenge
1 debo PO DAILY
lactobacillus combination no.8 3 billion cell Capsule
1 cell PO QPM
vitamins A,C,Z-lshu-ijmhqy 7,160-113-100 hyiy-vz-kbzz Tablet,Delayed Release (Dr/Ec)
1 tab PO QPM
quercetin 500 mg Capsule
800 mg PO QPM
B-Dchwmh-Lemnfuj
600 mg PO DAILY
Vision Essentials
1 tab PO DAILY
Changed
furosemide 40 mg Tablet
40 mg PO BID Qty: 0 0RF
ascorbic acid (vitamin C) [Vitamin C] 500 mg Tablet
500 mg PO DAILY Qty: 0 0RF
Discontinued
prednisone 20 mg Tablet
20 mg PO DAILY
Discharge Orders:
Discharge Patient (As Directed); Ordered 10/22/24
Ordered By: Bhargavi Drew
Care Plan Goals
Care Plan Goals:
Problem: Readiness for enhanced knowledge related to diagnosis and treatment plan
Goal: Understand your diagnosis and treatment plan needs, including medications if applicable.
Instructions: Know your diagnosis, underlying causes and treatment plan options, including medications if applicable. Consult with your health care team to learn about your diagnosis and treatment plan, including medications if applicable.
Discharge Date and Time
Print Language: MOLDOVAN
--- NOTE | 2024-10-22 14:57 | PTCARENOTE ---
Pt's IV line & telemetry pack D/C'd; Pt D/C'd to home w/personal belongings including cell phone w/spouse providing transportation.
== END 2024-10-22 14:45 | disposition home or self-care (01) | DRG 286 ==
LOC: IVU 18:45
PROVIDERS: Hospitalist; Internal Medicine Interventional Cardiology; Nurse Practitioner; ADMITTING PHYSICIAN Internal Medicine; PRIMARYCARE PHYSICIAN Nurse Practitioner; REFERRING PHYSICIAN Internal Medicine Cardiovascular Disease
PROC: 4A023N6 Measurement of Cardiac Sampling and Pressure, Right Heart, Percutaneous Approach (ICD-10-PCS; 2024-10-19)
PROC: B2111ZZ Fluoroscopy of Multiple Coronary Arteries using Low Osmolar Contrast (ICD-10-PCS; 2024-10-21)
PROC: 4A023N8 Measurement of Cardiac Sampling and Pressure, Bilateral, Percutaneous Approach (ICD-10-PCS; 2024-10-21)
DX: I11.0 Hypertensive heart disease with heart failure (principal); I50.31 Acute diastolic (congestive) heart failure; E87.1 Hypo-osmolality and hyponatremia; I25.10 Atherosclerotic heart disease of native coronary artery without angina pectoris; I08.3 Combined rheumatic disorders of mitral, aortic and tricuspid valves; I27.20 Pulmonary hypertension, unspecified; Z85.46 Personal history of malignant neoplasm of prostate; I45.9 Conduction disorder, unspecified; N40.0 Benign prostatic hyperplasia without lower urinary tract symptoms; E83.52 Hypercalcemia; F41.9 Anxiety disorder, unspecified; Z87.891 Personal history of nicotine dependence
CPT/HCPCS: 80048; 80061; 83036; 83735; 85027; 93005; 93306; 93451; 93460; C1769; C1894; Q9957; Q9967

== ENCOUNTER → 2024-11-07 09:16 | Outpatient (REF) | payer BC, SELFPAY | LOC: RAD 09:16 | PROVIDERS: ATTENDING PHYSICIAN Nurse Practitioner Acute Care; FAMILY PHYSICIAN Nurse Practitioner | DX: I35.0 Nonrheumatic aortic (valve) stenosis (principal) | CPT/HCPCS: 74174; 75572; Q9967 ==

== ENCOUNTER 2024-12-01 09:26 | Inpatient (IN) | payer MEDICARE, BC, SELFPAY ==
[2024-11-22 13:28] LABS: % Basophils 0.6 % (0-2); % Eosinophils 1.9 % (0-6); % Immature Granulocytes 0.4 % (0-0.5); % Lymphocytes 28.5 % (20.5-51.1); % Monocytes 10.7 % (1.7-9.3); % Neutrophils 57.9 % (42.2-75.2); Absolute Basophils 0.1 10^3/uL (0-0.2); Absolute Eosinophils 0.2 10^3/uL (0-0.7); Absolute Lymphocytes 2.3 10^3/uL (1.2-3.4); Absolute Monocytes 0.9 10^3/uL (0.1-0.6); Absolute Neutrophils 4.7 10^3/uL (1.4-6.5); Hematocrit 41.9 % (39.0-52.0); Hemoglobin 13.7 g/dL (13.0-18.0); Mean Corp Hgb Conc. 32.7 g/dL (33.0-37.0); Mean Corpuscular Hgb 31.1 pg (27.0-31.0); Mean Corpuscular Volume 95.2 fL (80.0-94.0); Mean Platelet Volume 9.9 fL (7.4-10.4); Nucleated Red Blood Cells % 0 % (-); Platelet Count 280 10^3/uL (130-400)
[2024-11-22 13:29] LABS: Urine Albumin 1+ (Neg - Trace); Urine Bilirubin Negative (Negative); Urine Character Slightly Cloudy (Clear); Urine Color Yellow; Urine Glucose 4+ (Negative); Urine Ketone Negative (Negative); Urine Leukocyte 3+ (Negative); Urine Nitrite Negative (Negative); Urine Occult Blood 1+ (Negative); Urine Urobilinogen Negative (Neg - 1+); Urine pH 6.5 (5.0-9.0)
[2024-11-22 13:32] LABS: INR 1.02; PT 13.7 Sec (11.4-14.6)
[2024-11-22 13:33] LABS: APTT 31.9 Sec (23.4-35.0)
--- NOTE | 2024-11-22 13:47 | CM ---
spoke to pt in PAT, we discussed preop TAVR teaching including lifting and driving restrictions. he is prev indep, lives with his in a 2 story home with 2 steps to enter. he has a stair glide at home. he is agreeable to a f/u visit from the ct
transitional care nurse after dc. he has the TAVR educ book, soap and instructions. cm role explained and all questions answered. plan is for TAVR 12/01.
[2024-11-22 13:52] LABS: AST (SGOT) 24 U/L (17-59); Albumin 3.9 g/dl (3.5-5.0); Alkaline Phosphatase 107 U/L (38-126); Blood Urea Nitrogen 21 mg/dl (9-20); Calcium 11.1 mg/dl (8.4-10.2); Carbon Dioxide 28 mmol/L (22-30); Chloride 100 mmol/L (98-107); Direct Bilirubin 0.3 mg/dl (0.0-0.4); Glucose 94 mg/dl (70-99); Total Protein 6.3 g/dl (6.3-8.2); eGFR > 60.00
[2024-11-22 13:59] LABS: NT-proBNP 5740 pg/ml
[2024-11-22 14:07] VITALS: BMI 29.0
[2024-11-22 14:14] LABS: ALT (SGPT) 22 U/L (0-50); Glycohemoglobin (HgbA1c) 6.4 % (4.0-5.6); Sodium 135 mmol/L (135-145)
[2024-11-22 14:52] LABS: Urine Amorphous Seen; Urine Squamous Cell 0-2 /LPF (Few)
[2024-11-22 14:53] LABS: Urine Red Blood Cell 0-2 /HPF (0-2); Urine White Cell 50-60 /HPF (0-5)
[2024-12-01] VITALS (26 sets, daily range): BP systolic 94–143; BP diastolic 53–113; BMI 29.5
--- NOTE | 2024-12-01 11:09 | CM ---
Reviewed chart. Mr. Russ is in the operating room today. Prior to admission he resides with his spouse in a two story home with two steps to enter. Prior to admission he he was independent with ambulation and adls. He has a stair glide at home.
Medical work-up in progress. The discharge plan is to return home with his spouse and a home visit by the Transitional Care Nurse when medically stable.
[2024-12-01] MEDS: ANCEF 10 IV (13:10)
[2024-12-01 14:12] LABS: ACT-LR - POC 256 Seconds (116-155)
[2024-12-01 14:33] LABS: ACT-LR - POC 285 Seconds (116-155)
[2024-12-01 14:56] LABS: ACT-LR - POC 279 Seconds (116-155)
--- NOTE | 2024-12-01 15:14 | W.CVOR.SURPR ---
CVOR Surgeon Immed Pre Op
-
I have examined this patient prior to performance of the scheduled procedure.
The patient's condition is unchanged from the time of the dictated/written History and
Physical and the patient is able to undergo the scheduled procedure.
--- NOTE | 2024-12-01 15:14 | W.IMMPOSTOP ---
Surgical Immed Post Op Note
-
[id number]
STRUCTURAL HEART PROCEDURE NOTE:
Preoperative Dx:
Severe aortic stenosis (P/M: 49/35; NICKI 0.58, DI 0.19)
Hx of acute heart failure
Hyponatremia
Hyperglycemia
HTN
Prostate CA
Postoperative Dx:
Same
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
Procedures:
1) L CFV access w/ U/S and fluoroscopic guidance, micropuncture technique, 6Fr sheath placement
2) L AMMUNITION ASSEMBLY II LABORER access w/ tactile, U/S, and fluoroscopic guidance, micropuncture technique, 6Fr sheath placement
3) R AMMUNITION ASSEMBLY II LABORER access w/ tactile, U/S, and fluoroscopic guidance, micropuncture technique, limited angiography, 6Fr sheath placement
4) Placement of perclose sutures x 2 into R AMMUNITION ASSEMBLY II LABORER, 8Fr sheath placement
5) Placement of temporary RV pacing wire w/ threshold testing
6) Placement of pigtail catheter in NCC w/ limited aortography & confirmation of cusp-overlap views
7) Serial dilation of R ileofemoral system w/ placement of 18Fr COOK sheath (systemic heparinization)
8) Wire purchase across stenotic AV (AL-1, soft-tip straight, table-J, pigtail catheter, LVEDP assessment)
9) Fluoroscopic inspection of TAVR valve
10) Placement of Lunderquist wire in LV apex
11) Removal of COOK sheath w/ placement of TAVR valve/in-line sheath via R AMMUNITION ASSEMBLY II LABORER
12) R TF TAVR w/ placement of 34mm EVOLUT FX+ valve (3 complete recaptures/repositions required)
13) Completion aortography
14) Completion TTE assessment (Trace PVL, mean gradient 10mmHg)
15) Additional fluoroscopic inspection of TAVR valve
16) Removal of valve delivery system w/ R AMMUNITION ASSEMBLY II LABORER mgmt w/ perclose sutures x 2; manual pressure
17) Completion R ileofemoral angiography
18) Removal of temporary pacing wire (L CFV sheath maintained secondary to intermittent BBB and junctional rhythm)
19) Limited angiography of L AMMUNITION ASSEMBLY II LABORER w/ subsequent removal of L AMMUNITION ASSEMBLY II LABORER sheath w/ mgmt w/ 6Fr angioseal; manual pressure
Mexican Food Machine Tender:
Dr. Belkys Bedolla
Cardiac Surgeon:
Dr. Derick Arce
Anesthesia:
MAC & local to B/L groins
Implants:
Medtronic 34mm Evolut FX+; 34mm; SN: [id number]
Perclose x 2 to R AMMUNITION ASSEMBLY II LABORER
6Fr angioseal x 1 to L AMMUNITION ASSEMBLY II LABORER
Cath Data:
Start: 1342hrs, Deploy: 1437hrs, End: 1509hrs
FT: 21.0min, mGy: 1646.84, DAP: 121.06, Contrast: 248mL
Post-TTE: mean gradient 10mmHg, trace PVL
LVEDP: 28mmHg
Complications:
New intermittent LBBB / accelerated junctional rhythm
Condition:
Guarded to recovery
[2024-12-01] MEDS: LEVOPHED 250 IV (15:35)
[2024-12-01] MEDS: ANCEF IV ×2 (17:17→19:15)
[2024-12-01] MEDS: LASIX 40 MG PO (17:37)
[2024-12-01] MEDS: FLOMAX 0.4 MG PO (17:37)
--- NOTE | 2024-12-01 18:00 | PTCARENOTE ---
Pt received post TAVR at 1645. Right groin site dressing dry and intact, site soft. Left groin site with venous sheath intact. Denies any chest pain or sob. SR with first degree AV block.Levo turned off at 1700. Venous sheath pulled at 1807.
--- NOTE | 2024-12-01 19:20 | ITS.CL.TAVR ---
Electronic System Engineer - TAVR Report
TAVR PRocedure
Procedure Report:
TRANSCATHETER AORTIC VALVE REPLACEMENT
Date of Procedure: December 01, 2024
Referring: Porfirio Cummins
Operators: Drs. Belkys Bedolla and Derick Arce
PROCEDURE PERFORMED:
1. Successful placement of 34 mm Medtronic Evolut FX+ valve via right femoral artery.
PREPROCEDURE NYHA CLASS: II
DESCRIPTION OF PROCEDURE: The patient was referred for assessment of severe symptomatic aortic stenosis and following a comprehensive evaluation it was felt that transcatheter aortic valve replacement (TAVR) would be the most appropriate treatment.
Informed consent was obtained prior to the procedure. A 'time-out' was called and the procedural plan was verbally confirmed by anesthesia, surgery, perfusion, and technology lab teacher staff.
Arterial and venous access were obtained in the left common femoral artery and vein using a micropuncture technique and 6 Fr. sheaths were inserted. A 5 Fr. transvenous pacing wire was then advanced to the right ventricle where excellent pacing
thresholds were obtained.
A 5 Fr. pigtail catheter was then advanced to the proximal ascending aorta / noncoronary cusp where angiography was performed to define the the cusp overlap view isolating the non-coronary cusp with overlap of the right and left coronary cusps. The
cusp overlap view was BOJORQUEZ 9/caudal 22
Ultrasound guidance was then used to obtain arterial access in the right common femoral artery and a 6 Fr. sheath was inserted. Angiography was performed and the arteriotomy site appeared appropriate for preclosure with two Perclose devices. An 8
Georgian sheath was then inserted back into the common femoral artery over a J-tipped guidewire. An AL1 catheter was then advanced to the proximal descending aorta. A Double-curve Vikki 0.035' wire was placed in the proximal descending
thoracic aorta to facilitate delivery of a 18 Fr / 13 cm Cook sheath.
An AL1 catheter was then positioned just above the aortic valve and a 0.035' Straight tip wire probed the aortic valve and crossed the stenotic leaflets. The AL1 was then advanced to the mid left ventricle. A long J-wire was advanced to the left
ventricular apex and was followed to the apex with an angled pig-tail catheter. Invasive LVEDP was noted to be elevated at 25 mmHg. The Double Curve Lunderquist was then positioned in the left ventricular apex. The Evolut FX+ stent was inspected
under fluoroscopy/cine while rotating the stent delivery system. The stent paddles were within the pocket and no significant crown overlap noted.
The 18 Fr. sheath was exchanged for the Evolut InLine delivery system. The 34 mm Evolut FX+ stent was advanced across the stenotic leaflets. The Evolut FX+ valve was slowly deployed in the leaflet overlap view until the stent flared achieving
contact at 1 below the noncoronary cusp. The stent continued to flared achieving contact with the left coronary cusp. The image intensifier was rotated to an FINNISH position to remove parallax from the valve with continued valve deployment with
controlled pacing. We transitioned quickly through the rumble strips on the InLine delivery sheath until the marker band was positioned just below the paddle attachment. Angiography was performed. The valve structure was released from the
delivery system when we were happy with the valve position. Given LVOT was larger than the annulus, the valve did diving a little ending up at about 4-5 on the noncoronary cusp side and 5-6 on the left coronary cusp side. Post deployment
angiography had only trace aortic insufficiency and a mean gradient of 10 mmHg.
The Evolut Pro+ delivery system capsule was reunited to the body of the delivery system. The Evolut InLine sheath was removed and the Perclose knots were advanced to the arteriotomy site resulting in excellent hemostasis.
Fluoro Time (min): 21, Dose (mGy): 1648.8, DAP (Gy.cm2) : 121.0
CONCLUSIONS:
1. Severe symptomatic aortic stenosis. Successful deployment of a 34 mm Evolut FX+ valve with minimal aortic insufficiency post procedure
2. Successful arteriotomy closure with 2 Perclose devices.
3. Acute on chronic diastolic heart failure with LVEDP elevated at 25 mmHg.
Copy to: Sajan Rivers
[2024-12-01] MEDS: ANCEF 5 IV (21:51)
[2024-12-01] MEDS: VISBIOME PO (21:52)
[2024-12-01] MEDS: OCUVITE SOFTGEL PO (21:52)
--- NOTE | 2024-12-01 23:48 | PTCARENOTE ---
Assumed care of the pt @ 1900. AAOx3 Pt c/o bladder pain/ pressure. Bladder scan 1117 ml and straight cath for 1400 ml yellow urine. SR with 1 degree HB and PVC's on the monitor. B/L groin sites c/d/i no bleeding no hematoma. Pulse ox 89% on RA was
placed on 2 LPM NC. Call reynolds within reach.
[2024-12-02] VITALS (9 sets, daily range): BP systolic 97–123; BP diastolic 54–69; PULSE 79; O2SAT 96–98; BMI 29.5
[2024-12-02] MEDS: XANAX 0.5 MG PO ×2 (00:47→22:04)
[2024-12-02] MEDS: VISBIOME PO (00:49)
[2024-12-02] MEDS: OCUVITE SOFTGEL PO (00:49)
[2024-12-02 05:09] LABS: Hematocrit 37.8 % (39.0-52.0); Hemoglobin 12.5 g/dL (13.0-18.0); Mean Corp Hgb Conc. 33.1 g/dL (33.0-37.0); Mean Corpuscular Hgb 31.9 pg (27.0-31.0); Mean Corpuscular Volume 96.4 fL (80.0-94.0); Mean Platelet Volume 10.8 fL (7.4-10.4); Platelet Count 174 10^3/uL (130-400); Red Blood Cell Count 3.92 10^6/uL (4.70-6.10); Red Cell Dist. Width 16.6 % (11.5-14.5)
[2024-12-02 05:34] LABS: Blood Urea Nitrogen 14 mg/dl (9-20); Calcium 9.9 mg/dl (8.4-10.2); Carbon Dioxide 25 mmol/L (22-30); Chloride 104 mmol/L (98-107); Estimated Creatinine Clearance 76 ml/min; Glucose 93 mg/dl (70-99); Potassium 3.7 mmol/L (3.5-5.1); Sodium 135 mmol/L (135-145); eGFR > 60.00
--- NOTE | 2024-12-02 05:41 | W.PN.CT ---
Today's Communication / Plan
-
-pod #1
-no issues overnight
-has pre-existing 1st degree AVB and new LBBB. Pt is not on AVN blocking meds at home
-tele: nsr 60s-70s. No significant rodrigo or pauses. Has intermittent junctional beats, PACs, PCVs, couplets
-diuresed with 40 Lasix yesterday (UO 2425/2725 in 12/24 hrs)
-Echo today
-curent meds (ASA, Lasix 40 bid, Farxiga, Flomax, Proscar)
-encourage IS, OOB, ambulate
Assessment / Plan
-
- Severe symptomatic - s/p R TF TAVR w/ placement of 34mm EVOLUT FX+ valve (3 complete recaptures/repositions required) on 12/01/24, pod #1
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
- New intermittent LBBB / accelerated junctional rhythm
- Post-TTE: mean gradient 10mmHg, trace PVL
- Hx of acute heart failure
- Pre-existing 1st degree AVB
- Hyponatremia
- Hyperglycemia
- HTN
- Prostate CA
Discussed patient care with: Nursing and Care Team
Subjective
-
Date of Service: December 02, 2024
Objective Data
-
PT 13.7 Sec (11.4-14.6) 11/22/24 12:09
INR 1.02 11/22/24 12:09
APTT 31.9 Sec (23.4-35.0) 11/22/24 12:09
Vital Signs
Vital Signs
Temp Pulse Resp BP Pulse Ox
97.7 F 68 20 138/85 94
12/01/24 23:00 12/01/24 23:45 12/01/24 23:00 12/01/24 23:00 12/01/24 23:30
CT Intake/Output/Weight
12/01/24 12/01/24 12/02/24
06:59 18:59 06:59
Output Total 300 / 2175 1874 / 2175
Balance -300 / -2175 -1875 / -2175
SaO2: 94
Physical Exam
-
General: Awake and AOx3
Cardiovascular: Regular rate & rhythm, No Murmurs and No Rub
Respiratory: Decreased Breath Sounds
Incision: Other (groins are cdi, soft, nontender, no hematoma b/l)
Extremities: Edema +1
Abdomen: soft, nontender, nondistended, + bowel sounds
Data Reviewed
-
Lab Results: Results Reviewed
Medications: Active Meds Reviewed
Chest X-Ray: Report Reviewed and Image Reviewed
ECG: Report Reviewed and Image Reviewed
--- NOTE | 2024-12-02 07:13 | W.PN.ANS.POP ---
Anesthesia Post Operative
- Anesthesia Post Op Note
Vital Signs Stable-See Nursing Note: Yes
Airway Patent: Yes
Adequate Pain Control: Yes
Change in Mental Status: No
Current Postoperative Nausea & Vomiting: No
Anesthesia Complications: No
General Anesthetic Recall: No
Unplanned Admission: No
Post Op Hydration Adequate: Yes
[2024-12-02] MEDS: OCUVITE SOFTGEL 2 CAP PO ×2 (08:48→21:56)
[2024-12-02] MEDS: FARXIGA 10 MG PO (08:48)
[2024-12-02] MEDS: PROSCAR 5 MG PO (08:48)
[2024-12-02] MEDS: VITAMIN C 500 MG PO (08:48)
[2024-12-02] MEDS: LOW STRENGTH ASPIRIN 81 MG PO (08:48)
[2024-12-02] MEDS: VITAMIN D3 (cholecalciferol) 12.5 MCG PO (08:49)
[2024-12-02] MEDS: LASIX 40 MG PO ×2 (08:49→16:02)
--- NOTE | 2024-12-02 11:09 | W.PN.CARDCBS ---
Addendum entered and electronically signed by Alfred Tipton MD 12/02/24 12:15:
Agree with ANNIE Gottlieb's note and assessment
Agree with ANNIE Gottlieb's plan
Patient seen and examined
Reviewed telemetry
First-degree AV delay which is slightly improved from last evening's ECG but still slightly longer than pre-TAVR. On telemetry is no significant pauses. He has periods of PVCs which peelback refractoriness of the conduction system with a return of
a narrow complex beat and then functional block and left bundle branch.
Examination:
As per ANNIE Gottlieb's note
Telemetry reviewed
Cor regular
Alert and orient x 3
Nonfocal neurologically
Assessment:
-Severe symptomatic s/p R TF TAVR EVOLUT FX+ valve (3 complete recaptures/repositions required) 12/01/24
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
-New LBBB/accelerated junctional rhythm
-PVCs
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
-Hyperglycemia
-HTN
-BPH
-Prostate CA
ECHO 10/20/24: Technically difficult study, Definity used, EF 45 to 50%, stage III diastolic dysfunction, mild to distal anterior and anterolateral hypokinesis, mild MR, moderate AAS with peak/mean gradients 52/35 mmHg, mild to moderate TR, PAP 49 mmHg
ECHO 12/01/24: Technically limited study, EF 45 to 50%, mild global hypokinesis status post 34 mm Medtronic evolute TAVR with peak/mean gradients 18/10 mmHg, trace AR
Plan:
-Status post right transfemoral TAVR 12/01/2024
-He was noted to have pre-existing first-degree AV block, and postoperatively noted to have left bundle branch block and accelerated junctional rhythm as well as PVCs at times in pattern of bigeminy
-Will observe for another 24 hours on telemetry and plan for 2-week rhythm star monitor upon discharge Thursday a.m. No current indication for permanent pacing. His FL interval appears to be shortening.
-Repeat echo pending
-LVEDP was noted to be 28mmHg at time of TAVR. received 40mg IV lasix post procedure. Appears euvolemic from volume standpoint today. continue po lasix 40mg BID. Cr stable at 0.7. patient reports dry weight of 193 pounds.
-continue asa. hgb 12.5. B/L groin sites soft, NTTP.
-continue OP farxiga.
-OP cardiac follow up arranged
-d/w CT surgery
Original Note:
Today's Communication / Plan
-
follow rhythm. plan for DC in AM with 2 week rhythm star monitor
echo today
OP cardiac follow up arranged with [facility]
Impression / Plan
-
Primary Women'S Apparel Salesperson: Dr. Cummins of [facility]
Assessment:
-Severe symptomatic s/p R TF TAVR EVOLUT FX+ valve (3 complete recaptures/repositions required) 12/01/24
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
-New LBBB/accelerated junctional rhythm
-PVCs
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
-Hyperglycemia
-HTN
-BPH
-Prostate CA
ECHO 10/20/24: Technically difficult study, Definity used, EF 45 to 50%, stage III diastolic dysfunction, mild to distal anterior and anterolateral hypokinesis, mild MR, moderate AAS with peak/mean gradients 52/35 mmHg, mild to moderate TR, PAP 49 mmHg
ECHO 12/01/24: Technically limited study, EF 45 to 50%, mild global hypokinesis status post 34 mm Medtronic evolute TAVR with peak/mean gradients 18/10 mmHg, trace AR
Plan:
-Status post right transfemoral TAVR 12/01/2024
-He was noted to have pre-existing first-degree AV block, and postoperatively noted to have left bundle branch block and accelerated junctional rhythm as well as PVCs at times in pattern of bigeminy
-Will observe for another 24 hours on telemetry and plan for 2-week rhythm star monitor upon discharge hopefully in a.m. if with evidence of pauses or high-grade AV block, will require pacemaker
-Repeat echo pending
-LVEDP was noted to be 28mmHg at time of TAVR. received 40mg IV lasix post procedure. Appears euvolemic from volume standpoint today. continue po lasix 40mg BID. Cr stable at 0.7. patient reports dry weight of 193 pounds.
-continue asa. hgb 12.5. B/L groin sites soft, NTTP.
-continue OP farxiga.
-OP cardiac follow up arranged
-d/w CT surgery
Progress Note - Women'S Apparel Salesperson
Subjective
Date of Service: December 02, 2024
Feeling well. Ambulated around unit without difficulty. No chest discomfort or shortness of breath
Objective
Labs:
12/02/24 04:35
12/02/24 04:35
Labs
Hgb 12.5 g/dL (13.0-18.0) L 12/02/24 04:35
Hct 37.8 % (39.0-52.0) L 12/02/24 04:35
Plt Count 174 10^3/uL (130-400) 12/02/24 04:35
PT 13.7 Sec (11.4-14.6) 11/22/24 12:09
INR 1.02 11/22/24 12:09
APTT 31.9 Sec (23.4-35.0) 11/22/24 12:09
Sodium 135 mmol/L (135-145) 12/02/24 04:35
Potassium 3.7 mmol/L (3.5-5.1) 12/02/24 04:35
BUN 14 mg/dl (9-20) 12/02/24 04:35
Creatinine 0.7 mg/dL (0.7-1.3) 12/02/24 04:35
Glucose 93 mg/dl (70-99) 12/02/24 04:35
Vital Signs and I&O:
Vital Signs
Temp Pulse Resp BP Pulse Ox
98.4 F 72 18 123/66 95
12/02/24 08:17 12/02/24 08:15 12/02/24 08:17 12/02/24 08:12 12/02/24 10:00
Vital Signs
Temp Pulse Resp BP Pulse Ox
98.4 F 72 18 123/66 95
12/02/24 08:17 12/02/24 08:15 12/02/24 08:17 12/02/24 08:12 12/02/24 10:00
Intake & Output
11/30/24 12/01/24 12/02/24 12/03/24
07:59 07:59 07:59 07:59
Intake Total 800 / 800
Output Total 2725 / 2725
Balance -1924 / -1924
Physical Exam
Physical Exam
GEN: No distress, awake, alert, oriented x3. sitting in chair
HEENT: supple, anicteric, mmm, eomi
LUNGS: CTA B/L, no wheezes/rales
CV: Reg, S1/S2, no murmur
ABD: soft, BS+, NT/ND
EXT: No cyanosis, clubbing, edema
NEURO: Gross non-focal
SKIN: Warm, pink, dry. No rash. B/L groin sites c/d/i.
--- NOTE | 2024-12-02 12:57 | CM ---
Met w/ patient at bedside.
Pt. is feeling well post TAVR.
We discussed DC plan for home w/ CT Transitional Care RN. Pt. aware/agreeable to this.
Plan is for home w/ CT RN.
CM to follow.
--- NOTE | 2024-12-02 16:03 | PTCARENOTE ---
Pt received this am with no c/o of any chest pain or sob. OOB independently, gait steady. Pt states he is voiding normally. Denies any pain or discomfort. Bilateral groin dressings dry and intact.
[2024-12-02] MEDS: FLOMAX 0.4 MG PO (17:03)
[2024-12-02] MEDS: VISBIOME 1 CAP PO (21:56)
--- NOTE | 2024-12-03 01:26 | PTCARENOTE ---
Assumed care of the patient @ 1900 Pt is AAOx3 denies cp SR with 1st degree HB on the monitor. Pt walking independently to bathroom. Random bladder scan 397 ml. Pt requested Xanax for sleep. Call reynolds within reach
--- NOTE | 2024-12-03 01:48 | W.PN.CT ---
Addendum entered and electronically signed by Derick Arce MD 12/03/24 09:38:
I saw and examined the patient.
The PA's note was reviewed and I agree with the note.
Comment:
DC home w/ monitor
Original Note:
Today's Communication / Plan
-
-pod #2
-no significant issues overnight. Ambulates independently
-some urinary retention noted post void - continue Flomax and Proscar
-has pre-existing 1st degree AVB and new LBBB. Pt is not on AVN blocking meds at home
-tele: nsr 60s-70s. No significant rodrigo or pauses. Has intermittent junctional beats, PACs, PCVs, couplets
-diuresed with 40 bid Lasix 12/02
-current meds (ASA, Lasix 40 bid, Farxiga, Flomax, Proscar)
-appreciate Cardiology input
-plans to d/c today with Rhythm monitor
-ambulate
Assessment / Plan
-
- Severe symptomatic - s/p R TF TAVR w/ placement of 34mm EVOLUT FX+ valve (3 complete recaptures/repositions required) on 12/01/24, pod #2
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
- New intermittent LBBB / accelerated junctional rhythm
- Post-TTE: mean gradient 10mmHg, trace PVL
- Hx of acute heart failure
- Pre-existing 1st degree AVB
- Hyponatremia
- Hyperglycemia
- HTN
- Prostate CA
Discussed patient care with: Nursing and Care Team
Subjective
-
Date of Service: December 03, 2024
Objective Data
-
PT 13.7 Sec (11.4-14.6) 11/22/24 12:09
INR 1.02 11/22/24 12:09
APTT 31.9 Sec (23.4-35.0) 11/22/24 12:09
Vital Signs
Vital Signs
Temp Pulse Resp BP Pulse Ox
98.4 F 82 20 108/67 97
12/02/24 22:06 12/02/24 22:06 12/02/24 19:03 12/02/24 21:59 12/02/24 22:06
CT Intake/Output/Weight
12/02/24 12/02/24 12/03/24
06:59 18:59 06:59
Intake Total 800 / 800
Output Total 2425 / 2725 200 / 200
Balance -1625 / -1925 -200 / -200
SaO2: 97
Physical Exam
-
General: Awake and AOx3
Cardiovascular: Regular rate & rhythm (nsr with frequent extra beats), No Murmurs and No Rub
Respiratory: Decreased Breath Sounds
Incision: Other (groins are cdi, soft, nontender, no hematoma b/l)
Extremities: Edema +1
Abdomen: soft, nontender, nondistended, + bowel sounds
Data Reviewed
-
Lab Results: Results Reviewed
Medications: Active Meds Reviewed
Chest X-Ray: Report Reviewed and Image Reviewed
ECG: Report Reviewed and Image Reviewed
[2024-12-03 04:03] VITALS: BP 107/60
[2024-12-03 04:20] VITALS: BMI 29.3
[2024-12-03 04:32] LABS: Hematocrit 35.8 % (39.0-52.0); Hemoglobin 11.9 g/dL (13.0-18.0); Mean Corp Hgb Conc. 33.2 g/dL (33.0-37.0); Mean Corpuscular Hgb 32.1 pg (27.0-31.0); Mean Corpuscular Volume 96.5 fL (80.0-94.0); Mean Platelet Volume 10.6 fL (7.4-10.4); Platelet Count 157 10^3/uL (130-400); Red Blood Cell Count 3.71 10^6/uL (4.70-6.10); Red Cell Dist. Width 16.4 % (11.5-14.5); White Blood Cell Count 6.6 10^3/uL (4.8-10.8)
[2024-12-03 04:56] LABS: Blood Urea Nitrogen 18 mg/dl (9-20); Calcium 10.1 mg/dl (8.4-10.2); Carbon Dioxide 26 mmol/L (22-30); Chloride 106 mmol/L (98-107); Estimated Creatinine Clearance 76 ml/min; Glucose 105 mg/dl (70-99); Magnesium 2.4 mg/dl (1.6-2.3); Sodium 134 mmol/L (135-145); eGFR > 60.00
[2024-12-03 07:38] VITALS: BP 98/55
[2024-12-03 08:02] VITALS: BP 91/55
[2024-12-03] MEDS: LASIX 40 MG PO (08:02)
[2024-12-03] MEDS: VITAMIN C 500 MG PO (08:02)
[2024-12-03] MEDS: LOW STRENGTH ASPIRIN 81 MG PO (08:02)
[2024-12-03] MEDS: FARXIGA 10 MG PO (08:02)
[2024-12-03] MEDS: VITAMIN D3 (cholecalciferol) 12.5 MCG PO (08:02)
[2024-12-03] MEDS: PROSCAR 5 MG PO (08:03)
[2024-12-03] MEDS: OCUVITE SOFTGEL 2 CAP PO (08:03)
--- NOTE | 2024-12-03 09:22 | W.PN.CARDCBS ---
Addendum entered and electronically signed by Cruzito Bernal DO 12/03/24 10:21:
I saw and examined the patient.
The [employer] Un[employer]'s note was reviewed and I agree with the note.
Comment:
Patient resting comfortably in chair. Patient denies chest pain, shortness of breath, lightheadedness, dizziness, near-syncope, syncope, or palpitations
GEN: No distress, awake, alert, oriented x3. sitting in chair
HEENT: supple, anicteric, mmm, eomi
LUNGS: CTA B/L, no wheezes/rales
CV: Reg, S1/S2, no murmur
ABD: soft, BS+, NT/ND
EXT: No cyanosis, clubbing, edema; right groin access clean dry intact without hematoma good pedal pulses
NEURO: Gross non-focal
SKIN: Warm, pink, dry. No rash. B/L groin sites c/d/i.
Telemetry demonstrates sinus rhythm first-degree block left bundle branch block; occasional PAC with one-to-one conduction, occasional PVC/junctional escape beat. In discussion with patient, he reported no symptoms. No evidence of pauses or high
degree AV block
A/P as below
Patient status post TAVR for severe aortic stenosis with new intermittent left bundle branch block; no evidence of high degree AV block, asymptomatic
Discharge home with 14-day rhythm*MCT as placed by CT surgery
Continue aspirin, Lasix, Farxiga
Antibiotic therapy prior to dental visits
Discussed at length with patient if new or worsening symptoms to return to hospital; patient verbalized understanding and agreed with plan
Outpatient cardiology follow-up as scheduled
Original Note:
Today's Communication / Plan
-
Discharge home with 2-week live ambulatory monitor (rhythm star)
Continue aspirin, Lasix 40 mg twice daily, Farxiga
SBE prophylaxis with amoxicillin 2 g 1 hour prior to dental visit
Stable for discharge home with monitor. Patient understands if he develops chest pain, shortness of breath dizziness lightheadedness or syncope he should return to hospital.
Outpatient cardiology follow-up arranged
Impression / Plan
-
Primary Terminal Block Assembler: Dr. Cummins of [facility]
Assessment:
-Severe symptomatic s/p R TF TAVR EVOLUT FX+ valve (3 complete recaptures/repositions required) 12/01/24
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
-New LBBB/accelerated junctional rhythm
-PVCs
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
-Hyperglycemia
-HTN
-BPH
-Prostate CA
ECHO 10/20/24: Technically difficult study, Definity used, EF 45 to 50%, stage III diastolic dysfunction, mild to distal anterior and anterolateral hypokinesis, mild MR, moderate AAS with peak/mean gradients 52/35 mmHg, mild to moderate TR, PAP 49 mmHg
ECHO 12/01/24: Technically limited study, EF 45 to 50%, mild global hypokinesis status post 34 mm Medtronic evolute TAVR with peak/mean gradients 18/10 mmHg, trace AR
Echo 12/02/2024: EF 50%. Mild global hypokinesis. Mild concentric LVH. Mild mitral stenosis with peak/mean gradient 7/3 mmHg with mild MR. Well-seated 34mm Medtronic Evolut TAVR with Peak gradient 17mmHg/Mean gradient 10mmHg - trace aortic
regurgitation. PAP 40 to 45 mmHg
Plan:
-Status post right transfemoral TAVR 12/01/2024, POD#2
-He was noted to have pre-existing first-degree AV block, and postoperatively noted to have left bundle branch block and accelerated junctional rhythm, intermittent Wenckebach as well as PVCs at times in pattern of bigeminy. However patient is
asymptomatic and able to ambulate around unit without chest pain, shortness of breath, dizziness or near syncope. Patient is eager to go home.
-Will go home with 2-week rhythm star monitor. If there is evidence of pauses or high-grade AV block or symptomatic bradycardia, will require pacemaker. Patient verbalized understanding
-Stable echo on 12/02/2024 with well-seated aortic valve and no paravalvular leak
-Discussed with patient patient will need SBE prophylaxis with amoxicillin 2 g 1 hour prior to dental visits. 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
-LVEDP was noted to be 28mmHg at time of TAVR. Received 40mg IV lasix post procedure. Weight down several pounds since admission and appears euvolemic from volume standpoint today. Continue po lasix 40mg BID. Cr stable at 0.7. patient reports dry
weight of 193 pounds, current weight 192 pounds
-continue asa. hgb 11.9. B/L groin sites soft
-continue OP farxiga.
-OP cardiac follow up arranged
-Stable from cardiac standpoint for discharge
Plan discussed with patient, CT surgery, nursing
Progress Note - Terminal Block Assembler
Subjective
Date of Service: December 03, 2024
Patient seen and examined. Patient reports that he is feeling well. He is able to ambulate around unit without chest pain, shortness of breath, dizziness or near syncope. Patient is eager to go home.
Objective
Labs:
12/03/24 04:14
12/03/24 04:14
Labs
Hgb 11.9 g/dL (13.0-18.0) L 12/03/24 04:14
Hct 35.8 % (39.0-52.0) L 12/03/24 04:14
Plt Count 157 10^3/uL (130-400) 12/03/24 04:14
PT 13.7 Sec (11.4-14.6) 11/22/24 12:09
INR 1.02 11/22/24 12:09
APTT 31.9 Sec (23.4-35.0) 11/22/24 12:09
Sodium 134 mmol/L (135-145) L 12/03/24 04:14
Potassium 4.0 mmol/L (3.5-5.1) 12/03/24 04:14
BUN 18 mg/dl (9-20) 12/03/24 04:14
Creatinine 0.7 mg/dL (0.7-1.3) 12/03/24 04:14
Glucose 105 mg/dl (70-99) H 12/03/24 04:14
Vital Signs and I&O:
Vital Signs
Temp Pulse Resp BP Pulse Ox
97.7 F 72 18 107/60 97
12/03/24 07:38 12/03/24 04:02 12/03/24 07:38 12/03/24 04:03 12/03/24 07:38
Vital Signs
Temp Pulse Resp BP Pulse Ox
97.7 F 72 18 107/60 97
12/03/24 07:38 12/03/24 04:02 12/03/24 07:38 12/03/24 04:03 12/03/24 07:38
Intake & Output
12/01/24 12/02/24 12/03/24 12/04/24
06:59 06:59 06:59 06:59
Intake Total 800 / 800
Output Total 2725 / 2725 1000 / 1000
Balance -1925 / -1925 -1000 / -1000
Physical Exam
Physical Exam
GEN: No distress, awake, alert, oriented x3. sitting in chair
HEENT: supple, anicteric, mmm, eomi
LUNGS: CTA B/L, no wheezes/rales
CV: Reg, S1/S2, no murmur
ABD: soft, BS+, NT/ND
EXT: No cyanosis, clubbing, edema; right groin access clean dry intact without hematoma good pedal pulses
NEURO: Gross non-focal
SKIN: Warm, pink, dry. No rash. B/L groin sites c/d/i.
[2024-12-03 10:09] VITALS: BP 110/50
[2024-12-03 10:18] VITALS: BP 104/66
--- NOTE | 2024-12-03 10:37 | W.DCSUMMARY ---
Discharge Summary
Discharge Data
Date of Admission: 12/01/24
Date of Discharge: 12/03/24
-
Pending Results: No
Hospital Course
Primary care physician: Itz Nash
Outpatient die cutter: Porfirio Cummins
Inpatient consultants: Cardiology- ALESSANDRO
Procedures:
1. 12/01/2024 right transfemoral TAVR with a #34 evolut FX+ valve
Primary Diagnosis:
1. Severe aortic stenosis
2. Acute on chronic systolic and diastolic congestive heart failure
3. New left bundle branch block/intermittent accelerated junctional rhythm
Secondary Diagnoses:
1. Hypertension
2. History of prostate cancer
3. First-degree AV block, chronic
4. Hyperglycemia
5. Hyponatremia
HPI: Patient is a 84-year-old male with complaints of worsening dyspnea on exertion and history of decompensated heart failure with known severe aortic stenosis. Most recent echo demonstrated mildly reduced LV systolic function, grade 3 diastolic
dysfunction, and mod-severe with a mean gradient of 35 mmHg. Patient was referred for TAVR evaluation. After all preoperative workup was completed he was deemed a suitable candidate to undergo the procedure.
Hospital course: Patient was brought in electively on 12/01/2024 where he underwent an uncomplicated right transfemoral TAVR with a #34 evolut fx+ valve by Drs. Arce and Chioma. Patient was transferred to recovery on low-dose Levophed drip, postop
EKG demonstrated new left bundle branch block. He was [place] off of vasoactive drips without difficulty and remained stable overnight. On postop day 1 he had intermittent junctional and sinus rhythm with persistent left bundle branch block.
Decision to keep patient in-house for continued telemetry monitoring. On postop day 2 his rhythm remained stable and he is asymptomatic. Patient was discharged to home with rhythm star monitor in place with instructions to patient and family
members at bedside. He should wear this for the next 2 weeks per direction of cardiology.
Home medication changes: No changes, Tylenol as needed for pain/discomfort.
Discharge Plan
-
Patient Disposition: Home (Routine Discharge)
Discharge Diagnosis/Procedures: s/p TF TAVR
Condition: Good
Diet: 2 Gram Sodium
Activity: No strenuous activity
Driving Restrictions: No driving for 1 week
Bathing Restrictions: OK to Shower
Others Tests: follow up echo in 30 days--schedule with cardiology office
Other Services: Cardiac Rehab
Specialty Instructions: Weigh Daily- Call MD for wt gain/loss 3 lbs overnight/5 lbs in 1 week
Activity Restrictions/Additional Instructions:
Please call to make appointments for Phase II Cardiac Rehab:
[facility]: [phone]
(call after follow-up visit with cardiology)
Referrals:
CT Transitional Care Nurse [Outside] - in one to two days (The Cardiothoracic Transitional Care Nurse will call you to set up a visit in 1-2 days.)
Porfirio Cummins DO [Affiliate] - 12/28/24 2:00 pm
Itz Nash CRNP [Family Provider] - in four to six weeks (Please make an appointment in four to six weeks. )
Prescriptions:
New
acetaminophen 325 mg Tablet
650 mg PO Q4HPRN PRN (Reason: RIVERA, mild pain, or fever >101F) Qty: 0 0RF
Continued
alprazolam 0.5 mg Tablet
0.5 mg PO BID PRN (Reason: anxiety)
tamsulosin 0.4 mg Capsule
0.4 mg PO QPM
finasteride 5 mg Tablet
5 mg PO DAILY
loratadine 10 mg Tablet
10 mg PO DAILY
cholecalciferol (vitamin D3) [Vitamin D3] 25 mcg (1,000 unit) Capsule
12.5 mcg PO DAILY
Zinc (with A and C) Lozenges Lozenge
1 debo PO DAILY
quercetin 500 mg Capsule
500 mg PO QPM
Vision Essentials
1 tab PO DAILY
dapagliflozin propanediol [Farxiga] 10 mg tablet
10 mg PO DAILY Qty: 30 6RF
aspirin 81 mg Tablet,Chewable
81 mg PO DAILY Qty: 30 0RF
furosemide 40 mg Tablet
40 mg PO BID Qty: 0 0RF
ascorbic acid (vitamin C) [Vitamin C] 500 mg Tablet
500 mg PO DAILY Qty: 0 0RF
cod liver oil Capsule
1 cap PO DAILY
PreserVision AREDS 2,148 mcg-113 mg-45 mg-17.4mg Tablet
2 tab PO BID
Probiotic
1 cap PO HS
Discharge Orders:
Discharge Patient (As Directed); Ordered 12/03/24
Ordered By: Luz Maria Peñaloza
Care Plan Goals
Care Plan Goals:
Problem: Readiness for enhanced knowledge related to diagnosis and treatment plan
Goal: Understand your diagnosis and treatment plan needs, including medications if applicable.
Instructions: Know your diagnosis, underlying causes and treatment plan options, including medications if applicable. Consult with your health care team to learn about your diagnosis and treatment plan, including medications if applicable.
Discharge Date and Time
Discharge Date/Time: 12/03/24 12:51
Print Language: ALBANIAN
[2024-12-03 12:06] VITALS: BP 104/66; BP 110/50; PULSE 77; O2SAT 97; O2SAT 98
--- NOTE | 2024-12-03 12:49 | PTCARENOTE ---
IV and tele removed. Discharge instructions reviewed w/ pt and family members. Outpatient monitor turned on and placed on patient and education provided. Belongings collected and sent home w/ pt. Escorted via WC and staff assist. Discharged to home.
== END 2024-12-03 12:51 | disposition home or self-care (01) | DRG 266 ==
LOC: IVU 09:26
PROVIDERS: Internal Medicine Interventional Cardiology; Physician Assistant Medical; Physician Assistant Surgical; ADMITTING PHYSICIAN Thoracic Surgery (Cardiothoracic Vascular Surgery); FAMILY PHYSICIAN Nurse Practitioner
PROC: 02RF38Z Replacement of Aortic Valve with Zooplastic Tissue, Percutaneous Approach (ICD-10-PCS; 2024-12-01)
DX: I35.0 Nonrheumatic aortic (valve) stenosis (principal); Z00.6 Encounter for examination for normal comparison and control in clinical research program; I50.43 Acute on chronic combined systolic (congestive) and diastolic (congestive) heart failure; E87.1 Hypo-osmolality and hyponatremia; I11.0 Hypertensive heart disease with heart failure; R73.9 Hyperglycemia, unspecified; I44.7 Left bundle-branch block, unspecified; I44.0 Atrioventricular block, first degree; Z79.82 Long term (current) use of aspirin; Z79.899 Other long term (current) drug therapy; Z85.46 Personal history of malignant neoplasm of prostate
CPT/HCPCS: 93308; 33361; 36415; 71045; 71046; 80048; 80053; 81003; 81015; 82248; 83036; 83735; 83880; 85025; 85027; 85347; 85610; 85730; 86850; 86900; 86901; 87070; 87086; 93005; 93306; 93321; 93325; C1760; C1769; C1894; Q9967

== ENCOUNTER 2024-12-07 13:00 | Inpatient (IN) | payer MEDICARE, BC, SELFPAY ==
[2024-12-07] VITALS (33 sets, daily range): BP systolic 79–128; BP diastolic 43–91; BMI 26.4
[2024-12-07 10:33] LABS: % Basophils 0.5 % (0-2); % Immature Granulocytes 0.2 % (0-0.5); % Lymphocytes 21.2 % (20.5-51.1); % Monocytes 8.4 % (1.7-9.3); % Neutrophils 66.7 % (42.2-75.2); Absolute Eosinophils 0.3 10^3/uL (0-0.7); Absolute Lymphocytes 1.8 10^3/uL (1.2-3.4); Absolute Monocytes 0.7 10^3/uL (0.1-0.6); Absolute Neutrophils 5.6 10^3/uL (1.4-6.5); Hematocrit 41.3 % (39.0-52.0); Hemoglobin 13.6 g/dL (13.0-18.0); Mean Corp Hgb Conc. 32.9 g/dL (33.0-37.0); Mean Corpuscular Volume 97.2 fL (80.0-94.0); Mean Platelet Volume 10.1 fL (7.4-10.4); Nucleated Red Blood Cells % 0 % (-); Platelet Count 189 10^3/uL (130-400); Red Blood Cell Count 4.25 10^6/uL (4.70-6.10); Red Cell Dist. Width 16.1 % (11.5-14.5); White Blood Cell Count 8.4 10^3/uL (4.8-10.8)
[2024-12-07 10:59] LABS: ALT (SGPT) 19 U/L (0-50); AST (SGOT) 20 U/L (17-59); Albumin 3.9 g/dl (3.5-5.0); Alkaline Phosphatase 109 U/L (38-126); Blood Urea Nitrogen 18 mg/dl (9-20); Carbon Dioxide 24 mmol/L (22-30); Chloride 103 mmol/L (98-107); Glucose 109 mg/dl (70-99); Potassium 4.3 mmol/L (3.5-5.1); Sodium 135 mmol/L (135-145); Total Bilirubin 0.8 mg/dl (0.2-1.3); Total Protein 6.3 g/dl (6.3-8.2); eGFR > 60.00
[2024-12-07 11:00] LABS: Troponin I 0.106 ng/ml
--- NOTE | 2024-12-07 11:15 | ED.GENMED ---
History of Present Illness
General
Chief Complaint: Heart Rate Problem
Time Seen by Provider: 12/07/24 10:55
History of Present Illness
History of Present Illness:
Patient is a 84-year-old man with recent TAVR on December 09 presenting to the emergency department with concerns for bradycardia. We did receive a call from patient's sales representative meats sending patient in for pacemaker placement. Per chart review
patient was admitted for a TAVR that was uncomplicated. During his stay he did have intermittent junctional rhythm as well as sinus rhythm with a left bundle branch block. The placed a rhythm star monitor. Cardiology called him stating that he
was going to an abnormal rhythm and advised him to come to the emergency department for pacemaker. Patient denies any chest pain lightheadedness dizziness shortness of breath. He has no complaints at this time.
Phy Exam
Physical Exam
Physical Exam:
GENERAL: in no acute distress
HEENT: normocephalic, extraocular movements intact, moist oral mucosa
NECK: normal inspection
RESPIRATORY: no respiratory distress, clear to auscultation bilaterally
CARDIOVASCULAR: regular rate and rhythm
ABDOMEN/: soft, non-distended, non-tender to palpation, no rebound or guarding
EXTREMITIES: non-tender, no edema/swelling
NEUROLOGIC: awake and alert, moves all extremities
SKIN: warm
Course
Orders/Labs/Results
Orders:
Orders
12/07/24 10:15
Electrocardiogram (*1) Urgent
Reason for Study: Abnormal EKG
12/07/24 10:16
EKG- Treatment ONCE
12/07/24 10:24
Complete Blood Count/With Diff Urgent
Comprehensive Metabolic Panel Urgent
Troponin I Urgent
Abnormal Lab Results
12/07/24
10:24
RBC 4.25 L 10^6/uL
(4.70-6.10)
MCV 97.2 H fL
(80.0-94.0)
MCH 32.0 H pg
(27.0-31.0)
MCHC 32.9 L g/dL
(33.0-37.0)
RDW 16.1 H %
(11.5-14.5)
Absolute Monos (auto) 0.7 H 10^3/uL
(0.1-0.6)
Glucose 109 H mg/dl
(70-99)
Calcium 11.0 H mg/dl
(8.4-10.2)
Troponin I 0.106 H* ng/ml
12/07/24 10:24
12/07/24 10:24
Vital Signs
Initial and Last Documented VS:
Initial Vital Signs
Temp Pulse Resp BP Pulse Ox
98.4 F 71 18 128/61 97
12/07/24 10:13 12/07/24 10:13 12/07/24 10:13 12/07/24 10:13 12/07/24 10:13
Last Documented Vital Signs
Temp Pulse Resp BP Pulse Ox
98.4 F 72 20 126/58 97
12/07/24 10:13 12/07/24 11:02 12/07/24 11:02 12/07/24 11:02 12/07/24 11:02
MDM/Problems Addressed
Differential Diagnosis Includes:
Patient is a 84-year-old male with recent TAVR presenting to the emergency department with concerns for abnormal heart rate/rhythm seen on his outpatient monitor. On arrival here patient's heart rate is in the 70s. Blood pressure is normal. Exam
is otherwise reassuring. EKG obtained prior to my evaluation per my interpretation shows first-degree AV block. However given that there was concern about the abnormal rhythm on his monitor will have pads on patient. Blood work obtained prior to
my evaluation does show an elevated troponin. He is having no symptoms. EKG is not ischemic. He did recently have a TAVR would explain it. I did discuss with cardiology who recommended hospitalist admission for pacemaker. Discussed with
hospitalist who accepted patient to their service
*Critical Care Note
Total Time (30-74mins, 75-104mins- exclusive of procedures): Not Applicable
ED Attending Note
-
Portions of this chart may have been created with voice recognition software.� Occasional wrong word or��sound alike� substitutions may have occurred due to the inherent limitations of voice recognition software.
Discharge Plan
Departure
Prescriptions:
No Action
alprazolam 0.5 mg Tablet
0.5 mg PO BID PRN (Reason: anxiety)
tamsulosin 0.4 mg Capsule
0.4 mg PO QPM
finasteride 5 mg Tablet
5 mg PO DAILY
loratadine 10 mg Tablet
10 mg PO DAILY
cholecalciferol (vitamin D3) [Vitamin D3] 25 mcg (1,000 unit) Capsule
12.5 mcg PO DAILY
Zinc (with A and C) Lozenges Lozenge
1 debo PO DAILY
quercetin 500 mg Capsule
500 mg PO QPM
Vision Essentials
1 tab PO DAILY
dapagliflozin propanediol [Farxiga] 10 mg tablet
10 mg PO DAILY Qty: 30 6RF
aspirin 81 mg Tablet,Chewable
81 mg PO DAILY Qty: 30 0RF
furosemide 40 mg Tablet
40 mg PO BID Qty: 0 0RF
ascorbic acid (vitamin C) [Vitamin C] 500 mg Tablet
500 mg PO DAILY Qty: 0 0RF
cod liver oil Capsule
1 cap PO DAILY
PreserVision AREDS 2,148 mcg-113 mg-45 mg-17.4mg Tablet
2 tab PO BID
Probiotic
1 cap PO HS
acetaminophen 325 mg Tablet
650 mg PO Q4HPRN PRN (Reason: RIVERA, mild pain, or fever >101F) Qty: 0 0RF
Interventions
Interventions:
*Risk Screen - Suicide Last Done: 12/07/24 10:13
*General Assessment Last Done: 12/07/24 10:13
*Neglect/Abuse Screening Last Done: 12/07/24 11:12
*ED COVID-19 Vaccine History Last Done: 12/07/24 11:12
ED- Cardiac Assessment Last Done: 12/07/24 11:15
ED- Pulmonary Assessment Last Done: 12/07/24 11:16
Discharge Date and Time
Print Language: TURKMEN
--- NOTE | 2024-12-07 11:34 | EDRN ---
External pads on patient.
--- NOTE | 2024-12-07 11:37 | HPS.HSE ---
Family Physician
-
Family Physician: LIZZIE Gunter
Chief Complaint
-
Heart rate problem
History of Present Illness
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 Patient was discharged on
12/03/2024. He did have junctional rhythm intermittently, and was discharged home with a heart monitor. He was called by his doctor, and told to come to the ER since he needs a pacemaker. He denies chest pain, shortness of breath, palpitations.
No lightheadedness, no dizziness. Patient is completely asymptomatic. No vomiting, no diarrhea. No fever.
Medical History
Past Medical History
Past Medical History: Reports Other
Additional Past Medical History:
Severe symptomatic s/p 12/01/24
Post op LBBB/accelerated junctional rhythm
PVCs
Pre-existing 1st degree AVB
Chronic combined systolic-diastolic CHF
Hyperglycemia
HTN
BPH
Prostate CA
Past Surgical History: Reports Tonsilectomy and Other
Additional Past Surgical History:
s/p TAVR 12/01/24
Social History
Tobacco: Former Smoker
Alcohol: Occasional
Personal:
Living: With Family
Family History
Family History: Cancer and Other (CVA)
Allergies / Home Medications
Allergies reflects when Allergies were last updated in [employer].
Home Medications with original date entered in [employer]
Allergy/Medication List:
Allergies
Allergy/AdvReac Type Severity Reaction Status Date / Time
No Known Drug Allergies Allergy Unknown Verified 12/07/24 10:13
Home Medications Table - record
�Medication �Instructions �Recorded �Confirmed
Vision Essentials 1 tab PO DAILY Supplement 10/19/24 12/07/24
alprazolam 0.5 mg tablet 0.5 mg PO BIDPRN PRN anxiety 10/19/24 12/07/24
cholecalciferol (vitamin D3) 25 12.5 mcg PO DAILY Supplement 10/19/24 12/07/24
mcg (1,000 unit) capsule (Vitamin
D3)
finasteride 5 mg tablet 5 mg PO DAILY Urinary Issue 10/19/24 12/07/24
loratadine 10 mg tablet 10 mg PO DAILY Allergies 10/19/24 12/07/24
quercetin 500 mg capsule 500 mg PO QPM Anti-Inflammatory 10/19/24 12/07/24
tamsulosin 0.4 mg capsule 0.4 mg PO QPM Urinary Issue 10/19/24 12/07/24
vit A-vit W-wiis-qlpjlvuc lozenges 1 debo PO DAILY Supplement 10/19/24 12/07/24
(Zinc (with Vitamins A and C)
Lozenges)
dapagliflozin propanediol 10 mg 10 mg PO DAILY Heart Failure #30 10/20/24 12/07/24
tablet (Farxiga) tabs
ascorbic acid (vitamin C) 500 mg 500 mg PO DAILY Supplement #0 tabs 10/22/24 12/07/24
tablet (Vitamin C)
furosemide 40 mg tablet 40 mg PO BID #0 tabs 10/22/24 12/07/24
cod liver oil 1 cap PO DAILY Supplement 11/18/24 12/07/24
vitamins A,C,D-zibw-nioujs 2,148 2 tab PO BID Supplement 11/18/24 12/07/24
mcg-113 mg-45 mg-17.4 mg tablet
(PreserVision AREDS)
acetaminophen 325 mg tablet 650 mg (2 x 325 mg) PO Q4HPRN PRN 12/03/24 12/07/24
RIVERA, mild pain, or fever >101F #0
tabs
Lactobac no.2-Bifidobac no.1-S. 1 cap PO HS 12/07/24 12/07/24
thermo 112.5 billion cell capsule
(Visbiome)
aspirin 81 mg tablet,delayed 81 mg PO DAILY 12/07/24 12/07/24
release
Review of Systems
-
A 12 point ROS was completed and negative except as noted: Yes
Physical Exam
Vital Signs
Vital Signs
Temp Pulse Resp BP Pulse Ox
98.4 F 68 20 118/65 97
12/07/24 10:13 12/07/24 11:30 12/07/24 11:30 12/07/24 11:30 12/07/24 11:30
Physical Exam
General: No Apparent Distress
HEENT: NormoCephalic, Anicteric and Moist mucous membranes
Respiratory: Clear
Cardiac: S1/S2 and Regular Rhythm
GI: Soft, Non Tender, Non Distended and Normal Bowel Sounds
Musculoskeletal: No Clubbing, No Cyanosis, Edema, Left Lower Extremity and Edema, Right Lower Extremity
Skin: Warm and Dry
Neuro: Awake, Alert and Oriented
Psych: Calm
Laboratory Results
-
12/07/24 10:24
12/07/24 10:24
Laboratory Results
Total Bilirubin 0.8 mg/dl (0.2-1.3) 12/07/24 10:24
AST 20 U/L (17-59) 12/07/24 10:24
ALT 19 U/L (0-50) 12/07/24 10:24
Alkaline Phosphatase 109 U/L (38-126) 12/07/24 10:24
Troponin I 0.106 ng/ml H* 12/07/24 10:24
Impression/Plan
-
#Intermittent junctional rhythm status post TAVR
#Intermittent second-degree AV block
Consult cardiology, plan for permanent pacemaker placement today
#Severe status post TAVR 12/01/2024
Monitor
#Chronic heart failure with a reduced ejection fraction
Continue Lasix, Farxiga
#BPH
Continue Flomax, Proscar
#History of prostate cancer
DVT prophylaxis�subcu Lovenox
Full code
Updated at bedside 12/07
Total time spent to see the patient on the floor, examine the patient, review data and lab results, discuss treatment plan with patient, nursing staff around 60 minutes.
--- NOTE | 2024-12-07 12:46 | CON.CAR ---
Addendum entered and electronically signed by Alfred Tipton MD 12/07/24 14:35:
Patient seen and examined
Agree with ANNIE Gottlieb's note and assessment
Agree with NANIE Gottlieb's plan
Patient seen at the bedside having Mobitz 1 type II AV block. At outpatient rhythm star monitor demonstrated periods of 2-1 AV block. He is status post TAVR last with progressive first-degree AV delay and now signs of more advanced AV
block with Mobitz 1 type II and 2-1 high-grade AV block. He has periodic fatigue.
Discussed pacing with patient including 1 of thousand risk of [place] stroke and a 1% risk of pneumothorax tamponade infection or bleeding. I did time to answer all questions of patient and at bedside. We will plan pacemaker implant later
today.
Exam:
No murmur
Lungs clear to auscultation bilaterally
Alert and x 3
Nonfocal neurologically
Right handed
Abdomen soft nontender positive bowel sounds
No extremity edema
Assessment:
-Intermittent 2:1 AV block noted on rhythm star monitor
-Intermittent mobitz 1 type 2 in ER
-LBBB/accelerated junctional rhythm post TAVR
-PVCs
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
-Severe symptomatic s/p R TF TAVR EVOLUT FX+ valve (3 complete recaptures/repositions required) 12/01/24
-chronic combined systolic-diastolic CHF
-Hyperglycemia
-HTN
-BPH
-Prostate CA
ECHO 10/20/24: Technically difficult study, Definity used, EF 45 to 50%, stage III diastolic dysfunction, mild to distal anterior and anterolateral hypokinesis, mild MR, moderate with peak/mean gradients 52/35 mmHg, mild to moderate TR, PAP 49 mmHg
ECHO 12/01/24: Technically limited study, EF 45 to 50%, mild global hypokinesis status post 34 mm Medtronic evolute TAVR with peak/mean gradients 18/10 mmHg, trace AR
ECHO 12/02/24: EF 50%, mild global hypokinesis, mild concentric LVH, peak/mean gradients 7/30 mmHg, mild MR, status post number 34 mm Medtronic evolute TAVR with peak/mean gradient 17/10 mmHg, trace AR, PAP 40 to 45 mmHg
Plan:
-Patient with recent TAVR with postprocedure left bundle branch block and accelerated junctional rhythm discharged on rhythm star monitor. Primary preparation supervisor was alerted of intermittent 2-1 AV block noted on monitor as outpatient and patient was
called and referred to ER for evaluation, admission, and pacemaker placement.
-Last ate eggs and toast around 7:30 AM
-EKG in ER sinus rhythm with left bundle branch block and marked first-degree AV block which is more prolonged compared to discharge last Thursday. not on av sidney blocking agents
-echo post TAVR 12/02 with results as above
-Plan for pacemaker today. NPO. Discussed with patient and family at bedside
-B/L groin sites soft, NTTP
-Discussed with ER
Original Note:
Consultation
Consultation Request
Date/Time Consultation Performed: 12/07/24
Requesting Provider: Dr. Brown
Performing Provider: Sue Gottlieb PA-C for Dr. Tipton
Reason for Consultation: heart block
Medical History
-
Chief Complaint: abnormal heart rhythm
History of Present Illness:
Patient is an 84 yo M with PMH of severe s/p TAVR 12/01/24 who post procedure was noted to have LBBB and accelerated junctional rhythm as well as PVCs at times in pattern of bigeminy. He also had known 1st degree av block. He was placed on 14 day
rhythm star monitor upon DC. ATC (primary preparation supervisor) was alerted that patient having periods of 2:1 av block and was referred to ER for admission and PPM placement. Patient denies symptoms of lightheadedness or dizziness and states he has been
feeling well. Not on av sidney blocking agents as OP.
PMH:
-Severe symptomatic s/p R TF TAVR EVOLUT FX+ valve (3 complete recaptures/repositions required) 12/01/24
-Post op LBBB/accelerated junctional rhythm
-PVCs
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
-chronic combined systolic-diastolic CHF
-Hyperglycemia
-HTN
-BPH
-Prostate CA
Past Medical History
Past Medical History: Other (in HPI)
Social History
Tobacco: Former Smoker
Alcohol: Occasional
Personal:
Living: With Family
Employment: Retired
Family History
Family History: Cancer and Other (CVA)
Allergies / Home Medications
Allergy/AdvReac Type Severity Reaction Status Date / Time
No Known Drug Allergies Allergy Unknown Verified 12/07/24 10:13
�Medication �Instructions �Recorded �Confirmed �Type
Vision Essentials 1 tab PO DAILY Supplement 10/19/24 12/07/24 History
alprazolam 0.5 mg tablet 0.5 mg PO BIDPRN PRN anxiety 10/19/24 12/07/24 History
cholecalciferol (vitamin D3) 25 12.5 mcg PO DAILY Supplement 10/19/24 12/07/24 History
mcg (1,000 unit) capsule (Vitamin
D3)
finasteride 5 mg tablet 5 mg PO DAILY Urinary Issue 10/19/24 12/07/24 History
loratadine 10 mg tablet 10 mg PO DAILY Allergies 10/19/24 12/07/24 History
quercetin 500 mg capsule 500 mg PO QPM Anti-Inflammatory 10/19/24 12/07/24 History
tamsulosin 0.4 mg capsule 0.4 mg PO QPM Urinary Issue 10/19/24 12/07/24 History
vit A-vit I-nbtx-qpdiiyaq lozenges 1 debo PO DAILY Supplement 10/19/24 12/07/24 History
(Zinc (with Vitamins A and C)
Lozenges)
dapagliflozin propanediol 10 mg 10 mg PO DAILY Heart Failure #30 10/20/24 12/07/24 Rx
tablet (Farxiga) tabs
ascorbic acid (vitamin C) 500 mg 500 mg PO DAILY Supplement #0 tabs 10/22/24 12/07/24 Rx
tablet (Vitamin C)
furosemide 40 mg tablet 40 mg PO BID #0 tabs 10/22/24 12/07/24 Rx
cod liver oil 1 cap PO DAILY Supplement 11/18/24 12/07/24 History
vitamins A,C,B-dixc-puekqd 2,148 2 tab PO BID Supplement 11/18/24 12/07/24 History
mcg-113 mg-45 mg-17.4 mg tablet
(PreserVision AREDS)
acetaminophen 325 mg tablet 650 mg (2 x 325 mg) PO Q4HPRN PRN 12/03/24 12/07/24 Rx
RIVERA, mild pain, or fever >101F #0
tabs
Lactobac no.2-Bifidobac no.1-S. 1 cap PO HS 12/07/24 12/07/24 History
thermo 112.5 billion cell capsule
(Visbiome)
aspirin 81 mg tablet,delayed 81 mg PO DAILY 12/07/24 12/07/24 History
release
Review of Systems
-
History Source: Patient and Family
All other systems: Negative unless noted
Physical Exam
Vital Signs
Temp Pulse Resp BP Pulse Ox
98.4 F 68 13 115/67 97
12/07/24 10:13 12/07/24 12:15 12/07/24 12:15 12/07/24 12:15 12/07/24 12:15
Lab Results
12/07/24 10:24
12/07/24 10:24
Troponin I 0.106 ng/ml H* 12/07/24 10:24
Physical Exam
General: No Apparent Distress and Comfortable
HEENT: Normocephalic, Anicteric and Moist Mucous Membranes
Respiratory: Clear and Non Labored Respirations
Cardiac: S1/S2 and Regular Rhythm
GI: Soft, Non Tender, Non Distended and Normal Bowel Sounds
Musculoskeletal: No Clubbing, No Cyanosis and No Edema
Skin: Warm, Dry and Other (B/L groin sites soft, NTTP)
Neuro: AO x 3
Impression / Plan
-
Primary Pest Control Specialist: Dr. Cummins of [facility]
Assessment:
-Intermittent 2:1 AV block noted on rhythm star monitor
-Intermittent mobitz 1 type 2 in ER
-LBBB/accelerated junctional rhythm post TAVR
-PVCs
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
-Severe symptomatic s/p R TF TAVR EVOLUT FX+ valve (3 complete recaptures/repositions required) 12/01/24
-chronic combined systolic-diastolic CHF
-Hyperglycemia
-HTN
-BPH
-Prostate CA
ECHO 10/20/24: Technically difficult study, Definity used, EF 45 to 50%, stage III diastolic dysfunction, mild to distal anterior and anterolateral hypokinesis, mild MR, moderate with peak/mean gradients 52/35 mmHg, mild to moderate TR, PAP 49 mmHg
ECHO 12/01/24: Technically limited study, EF 45 to 50%, mild global hypokinesis status post 34 mm Medtronic evolute TAVR with peak/mean gradients 18/10 mmHg, trace AR
ECHO 12/02/24: EF 50%, mild global hypokinesis, mild concentric LVH, peak/mean gradients 7/30 mmHg, mild MR, status post number 34 mm Medtronic evolute TAVR with peak/mean gradient 17/10 mmHg, trace AR, PAP 40 to 45 mmHg
Plan:
-Patient with recent TAVR with postprocedure left bundle branch block and accelerated junctional rhythm discharged on rhythm star monitor. Primary preparation supervisor was alerted of intermittent 2-1 AV block noted on monitor as outpatient and patient was
called and referred to ER for evaluation, admission, and pacemaker placement. Patient asymptomatic
-Last ate eggs and toast around 7:30 AM
-EKG in ER sinus rhythm with left bundle branch block and marked first-degree AV block. not on av sidney blocking agents
-echo post TAVR 12/02 with results as above
-Plan for pacemaker today. NPO. Discussed with patient and family at bedside
-B/L groin sites soft, NTTP
-Discussed with ER
Data Reviewed
-
EKG: Tracing Personally Visualized and interpreted
Medical Tests (Nuc Med, Echo etc): Report Reviewed by me
Labs: Labs Reviewed by me
Old Records: Reviewed
--- NOTE | 2024-12-07 13:07 | EDRN ---
Updated by admitting MD. Pt will be going for procedure today and subsequently admitted. NPO status reinforced with patient.
--- NOTE | 2024-12-07 15:19 | ITS.CL.PACE ---
Addendum entered and electronically signed by Alfred Tipton MD 12/07/24 17:12:
Date of Procedure: December 07, 2024
Patient : 1940
Procedures: Biventricular pacemaker implantation
Indication: 1) Class III CHF, LVEF 45% with dyssynchrony, 2) left bundle Branch Block, QRS 180 ms 3) post TAVR implant last week with 2-1 AV block and progressive conduction system disease
Below report was saved in error prior to any important or diagnostic information placed. Please utilize this addendum as the procedure report.
Implants:
Pulse Generator: Medtronic; Model# W4 TR 01; Serial#�HOOP FLARING MACHINE OPERATOR HELPER [id number]
Atrial Lead: Medtronic: Model# 4574; Serial# [id number]
Right Ventricular Lead: Medtronic; Model# 4074; Serial# [id number]
Left Ventricular Lead: Medtronic; Model# 4798; Serial# [id number]
Technique: The patient was prepped and draped in the usual fashion. Local anesthetic was applied to the left prepectoral subcutaneous tissue. A 4 inch incision was made. The left axillary vein was accessed��without difficulty. A subcutaneous pocket
was CREATED. Hemostasis was excellent. The leads were introduced with hemostatic peel away introducer sheaths. The right ventricular lead was placed at the right ventricular apex]. The atrial lead was placed in the right atrial appendage. The
coronary sinus was accessed with the aid of the Attain system. The left ventricular lead was placed in the mid lateral branch. 10 volt pacing did not capture the diaphragm. The leads were secured to the pectoralis muscle and fascia. The leads were
appropriately attached to the device. The pocket was irrigated with antibiotic solution. The device and leads were placed in the pocket and the device was secured to pectoralis muscle and facia. The incision was closed with absorbable sutures. The
estimated blood loss was minimal. There were no complications. Device based testing was performed as described below. IV contrast total: 20 cc.
System Analysis:
RA lead: P: 2.5 mV; Threshold: 0.5 V @ 0.5 ms; Impedance: 798 ohms.
RV lead: R: 15 mV; Threshold: 0.7 V @ 0.5 ms; Impedance: 912 ohms.
LV lead: R: 9 mV; Threshold: 0.8 V @ 0.5 ms; Impedance: 646 ohms.
Conclusion: Uncomplicated Biventricular pacemaker
Recommendation: Routine post pacemaker care
cc: Dr. Porfirio Cummins, Dr. Sajan Black, Dr. Belkys Bedolla
Original Note:
Restorative Rehab Aide - Pacemaker Implant
Pacemaker Implant
Procedure Report:
Date of Procedure: [ ]
Patient : [ ]
Procedures: Right Heart Catheterization, BI V ICD implantation and testing.
Indication: 1) Class III CHF, LVEF [ ], 2) [ ] Bundle Branch Block, QRS [ ];
Implants:
Pulse Generator: Medtronic; Model# [id number] TRK; Serial#��PUD [ ] H.
Atrial Lead: Medtronic: Model# 5076; Serial# [id number] [ ].
Right Ventricular Lead: Medtronic; Model# 6947; Serial#TDG [ ] V.
Left Ventricular Lead: Medtronic; Model# 4194; Serial# LFG [ ] V.
Hemo Data: RA [ ] RV [ ] PA [ ] mean [ ] PCWP [ ] CO/CI [ ] PA sat [ ]
Technique: The patient was prepped and draped in the usual fashion. Local anesthetic was applied to the left prepectoral subcutaneous tissue. A 4 inch incision was made. The left axillary vein was accessed��without difficulty. A subcutaneous pocket
was CREATED. Hemostasis was excellent. A right heart catheterization was performed. The leads were introduced with hemostatic peel away introducer sheaths. The right ventricular lead was placed at the right ventricular [ ]. The atrial lead was
placed in the right atrial appendage. The coronary sinus was accessed with the aid of the Attain system. The left ventricular lead was placed in the [ ]. 10 volt pacing did not capture the diaphragm. The leads were secured to the pectoralis muscle
and fascia. The leads were appropriately attached to the device. The pocket was irrigated with antibiotic solution. The device and leads were placed in the pocket and the device was secured to pectoralis muscle and facia. The incision was closed
with absorbable sutures. The estimated blood loss was minimal. There were no complications. Device based testing was performed as described below. IV contrast total: [ ] cc.
System Analysis:
RA lead: P: [ ] mV; Threshold: [ ] V @ 0.5 ms; Impedance: [ ] ohms.
RV lead: R: [ ] mV; Threshold: [ ] V @ 0.5 ms; Impedance: [ ] ohms.
LV lead: R: [ ] mV; Threshold: [ ] V @ 0.5 ms; Impedance: [ ] ohms.
One induction. DFT(LED): [ ] Joules; [ ] ohms. VF Sensing was excellent at 1.2 mV.
Final Programming: Tachy: VT/VF:188; [place]: DDDR 60-120.
Conclusion: Uncomplicated Biventricular ICD implant and testing. Compensated filling pressures.
Recommendation: Routine post BiV ICD care.
cc: [ ]
[2024-12-07] MEDS: FLOMAX 0.4 MG PO (18:09)
--- NOTE | 2024-12-07 18:15 | PTCARENOTE ---
Rec'd pt from director of cath lab. L chest wall w/ steri strips, aquacel, pressure dsg c/d/i. L arm immobilizer on. Pt aware of activity restrictions. VSS. Tele- V-paced. Oriented pt to room. Currently in bed; call rodolfo w/in reach.
[2024-12-07] MEDS: LASIX 40 MG PO (18:27)
[2024-12-07] MEDS: XANAX 0.5 MG PO (22:17)
[2024-12-07] MEDS: ANCEF 5 IV (22:17)
[2024-12-08 02:37] VITALS: BP 108/56
[2024-12-08 02:59] VITALS: BMI 25.8
[2024-12-08 03:23] LABS: Hematocrit 39.9 % (39.0-52.0); Hemoglobin 13.2 g/dL (13.0-18.0); Mean Corp Hgb Conc. 33.1 g/dL (33.0-37.0); Mean Corpuscular Hgb 31.8 pg (27.0-31.0); Mean Corpuscular Volume 96.1 fL (80.0-94.0); Platelet Count 204 10^3/uL (130-400); Red Blood Cell Count 4.15 10^6/uL (4.70-6.10); Red Cell Dist. Width 15.9 % (11.5-14.5); White Blood Cell Count 8.7 10^3/uL (4.8-10.8)
[2024-12-08 03:48] LABS: Blood Urea Nitrogen 19 mg/dl (9-20); Calcium 11.3 mg/dl (8.4-10.2); Carbon Dioxide 26 mmol/L (22-30); Chloride 101 mmol/L (98-107); Estimated Creatinine Clearance 71 ml/min; Glucose 126 mg/dl (70-99); Magnesium 2.5 mg/dl (1.6-2.3); Potassium 4.8 mmol/L (3.5-5.1); Sodium 135 mmol/L (135-145); eGFR > 60.00
[2024-12-08] MEDS: ANCEF 5 IV (05:52)
[2024-12-08 06:48] VITALS: BP 107/60
[2024-12-08] MEDS: FARXIGA 10 MG PO (07:23)
[2024-12-08] MEDS: PROSCAR 5 MG PO (07:23)
[2024-12-08] MEDS: ASPIR LOW (ENTERIC COATED) 81 MG PO (07:23)
[2024-12-08] MEDS: LASIX 40 MG PO (07:23)
[2024-12-08] MEDS: CLARITIN 10 MG PO (07:23)
--- NOTE | 2024-12-08 08:00 | W.PN.CARDCBS ---
Today's Communication / Plan
-
Home today
Outpatient wound check 7 to 10 days
Outpatient cardiology follow-up with Dr. Cummins
Impression / Plan
-
Primary Roll Mechanic: Dr. Cummins of [facility]
Assessment:
-Intermittent 2:1 AV block noted on rhythm star monitor
-Intermittent mobitz 1 type 2 in ER
-LBBB/accelerated junctional rhythm post TAVR
-PVCs
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
-Severe symptomatic s/p R TF TAVR EVOLUT FX+ valve (3 complete recaptures/repositions required) 12/01/24
-chronic combined systolic-diastolic CHF
-Hyperglycemia
-HTN
-BPH
-Prostate CA
ECHO 10/20/24: Technically difficult study, Definity used, EF 45 to 50%, stage III diastolic dysfunction, mild to distal anterior and anterolateral hypokinesis, mild MR, moderate with peak/mean gradients 52/35 mmHg, mild to moderate TR, PAP 49 mmHg
ECHO 12/01/24: Technically limited study, EF 45 to 50%, mild global hypokinesis status post 34 mm Medtronic evolute TAVR with peak/mean gradients 18/10 mmHg, trace AR
ECHO 12/02/24: EF 50%, mild global hypokinesis, mild concentric LVH, peak/mean gradients 7/30 mmHg, mild MR, status post number 34 mm Medtronic evolute TAVR with peak/mean gradient 17/10 mmHg, trace AR, PAP 40 to 45 mmHg
Plan:
-BiV pacemaker site stable. Appropriate atrial sensing and BiV pacing on telemetry. Device implanted for progressive AV block post TAVR implant. He will follow-up with Dr. Cummins as outpatient and we will arrange a wound check in our office in 7
to 10 days.
-EKG in ER sinus rhythm with left bundle branch block and marked first-degree AV block. not on av sidney blocking agents. He had periods of 2-1 AV block on his outpatient M cot.
-echo post TAVR 12/02 with results as above
-Stable for discharge
Progress Note - Roll Mechanic
Subjective
Date of Service: December 08, 2024
Feels well
Objective
Labs:
12/08/24 02:54
12/08/24 02:54
Labs
Hgb 13.2 g/dL (13.0-18.0) 12/08/24 02:54
Hct 39.9 % (39.0-52.0) 12/08/24 02:54
Plt Count 204 10^3/uL (130-400) 12/08/24 02:54
Sodium 135 mmol/L (135-145) 12/08/24 02:54
Potassium 4.8 mmol/L (3.5-5.1) 12/08/24 02:54
BUN 19 mg/dl (9-20) 12/08/24 02:54
Creatinine 0.8 mg/dL (0.7-1.3) 12/08/24 02:54
Glucose 126 mg/dl (70-99) H 12/08/24 02:54
Troponins
12/07/24
10:24
Troponin I 0.106 H*
Vital Signs and I&O:
Vital Signs
Temp Pulse Resp BP Pulse Ox
97.7 F 60 20 108/56 97
12/08/24 06:48 12/08/24 03:00 12/08/24 06:48 12/08/24 02:37 12/08/24 06:48
Vital Signs
Temp Pulse Resp BP Pulse Ox
97.7 F 60 20 108/56 97
12/08/24 06:48 12/08/24 03:00 12/08/24 06:48 12/08/24 02:37 12/08/24 06:48
Physical Exam
Physical Exam
����Physical Exam
���������������������General:��no apparent distress, not acutely ill
���������������������������Neck:��supple. no meningeal signs. normal psoterior pharynx
������������������������
���������������������������Heart:��s1/s2 regular rate and rhythm, no murmur. equal radial pulses.
��������������������������Lungs: ��no acute respiratory distress. clear bilaterally
����������������������Abdomen:�normal bowel sounds. not tender. no CVAT
��������������������������Neuro:��alert and oriented. no focal neurological deficits
������������������������������Skin: ��no rash
�����������������������Psychiatric:�well kept. interactive and cooperative
�����������������������Extremities:��no edema. no calf tenderness. negative homans. good distal pulses
��
�
--- NOTE | 2024-12-08 09:29 | W.PN.HOSP.TC ---
Addendum entered and electronically signed by Wilfrid Selby MD 12/09/24 14:28:
#Nonischemic myocardial injury
Original Note:
Today's Communication/Plan
-
Cleared by cardiology for discharge today
Assessment / Plan
Assessment / Plan
HPI: 84-year-old male with a past medical history of severe aortic stenosis status post TAVR 12/01/2024, CHF, hypertension, prostate cancer, and BPH was told by his post hole digging machine operator to come to the ER for abnormal heart rate. Patient was discharged on
12/03/2024. He did have junctional rhythm intermittently, and was discharged home with a heart monitor. He was called by his doctor, and told to come to the ER since he needs a pacemaker. He denies chest pain, shortness of breath, palpitations.
No lightheadedness, no dizziness. Patient is completely asymptomatic. No vomiting, no diarrhea. No fever.
#Intermittent junctional rhythm status post TAVR
#Intermittent second-degree AV block
Appreciate cardiology input, status post permanent pacemaker placement on 12/07
Cleared by cardiology for discharge today
Follow-up with cardiology in the office
#Severe status post TAVR 12/01/2024
Monitor
#Chronic heart failure with a reduced ejection fraction
Continue Lasix, Farxiga
#BPH
Continue Flomax, Proscar
#History of prostate cancer
DVT prophylaxis�subcu Lovenox
Full code
Updated at bedside 12/08
Physical Exam
General: No acute distress
HEENT: Normocephalic, Atraumatic, EOMI, MMM
Respiratory: Clear to Auscultation bilaterally
Cardiac: Normal S1/S2, Regular Rate and Rhythm
Left arm in sling
GI: Soft, Nontender, Nondistended, Normal Bowel Sounds
Extremities: No Clubbing, Cyanosis, or Edema
Neuro: Nonfocal/Grossly Intact
Psych: Calm, Cooperative
Derm: No Visible lesions
Anticipated Discharge: Today
Subjective/Interval History
-
Date of Service: December 08, 2024
Patient denies chest pain, shortness of breath, or palpitations. He is eager for discharge today.
Objective Data
-
Labs:
Laboratory Results
12/08/24
02:54
WBC 8.7
Hgb 13.2
Hct 39.9
Plt Count 204
Sodium 135
Potassium 4.8
Chloride 101
Carbon Dioxide 26
BUN 19
Creatinine 0.8
Glucose 126 H
Calcium 11.3 H
Vital Signs:
Vital Signs
Temp Pulse Resp BP Pulse Ox
97.7 F 79 20 107/60 95
12/08/24 06:48 12/08/24 08:00 12/08/24 06:48 12/08/24 06:48 12/08/24 06:48
--- NOTE | 2024-12-08 12:00 | W.DCSUMMARY ---
Discharge Summary
Discharge Data
Date of Admission: 12/07/24
Date of Discharge: 12/08/24
-
Pending Results: No
Hospital Course
Discharge diagnosis:
Intermittent junctional rhythm
Intermittent second-degree block
Severe aortic stenosis status post valve replacement on 12/01/2024
Nonischemic myocardial injury troponin elevation
Chronic heart failure with reduced ejection fraction
Benign prostatic hypertrophy
History of prostate cancer
Procedures:
12/07/2024 permanent pacemaker placement
Hospital course:
84-year-old male with a past medical history of severe aortic stenosis status post TAVR 12/01/2024, CHF, hypertension, prostate cancer, and BPH was admitted for intermittent junctional rhythm and second-degree heart block status post TAVR on
12/01/2024. Patient was completely asymptomatic. He was discharged home with a heart monitor after receiving his TAVR, which showed intermittent junctional rhythm and second-degree heart block. He was told to come to the ER by his bar manager,
and that he needs a pacemaker. Patient was seen in conjunction with cardiology, and had permanent pacemaker placement on 12/07/2024. He was monitored overnight, and did well postprocedure. He is medically stable and cleared by cardiology for
discharge. He needs to follow-up with cardiology in the office as directed.
Disposition: Home self-care
Discharge planning: Required 35 minutes
Discharge Plan
-
Patient Disposition: Home (Routine Discharge)
Discharge Diagnosis/Procedures: BiV Pacemaker implant
Condition: Good
Diet: Low Cholesterol
Driving Restrictions: No driving for 1 week
Bathing Restrictions: OK to Shower
Stand Alone Forms: [facility] Inst - Implanted Device
Referrals:
[facility] [Provider Group] - 12/16/24 10:00 am (Incision check appointment)
Itz Nash CRNP [Family Provider] - in one week
Prescriptions:
Continued
alprazolam 0.5 mg Tablet
0.5 mg PO BIDPRN PRN (Reason: anxiety)
Rx Instructions:
12/07/24: picked up on 12/03/24 #60
tamsulosin 0.4 mg Capsule
0.4 mg PO QPM
finasteride 5 mg Tablet
5 mg PO DAILY
loratadine 10 mg Tablet
10 mg PO DAILY
cholecalciferol (vitamin D3) [Vitamin D3] 25 mcg (1,000 unit) Capsule
12.5 mcg PO DAILY
Zinc (with A and C) Lozenges Lozenge
1 debo PO DAILY
quercetin 500 mg Capsule
500 mg PO QPM
Vision Essentials
1 tab PO DAILY
dapagliflozin propanediol [Farxiga] 10 mg tablet
10 mg PO DAILY Qty: 30 6RF
furosemide 40 mg Tablet
40 mg PO BID Qty: 0 0RF
ascorbic acid (vitamin C) [Vitamin C] 500 mg Tablet
500 mg PO DAILY Qty: 0 0RF
cod liver oil Capsule
1 cap PO DAILY
PreserVision AREDS 2,148 mcg-113 mg-45 mg-17.4mg Tablet
2 tab PO BID
acetaminophen 325 mg Tablet
650 mg PO Q4HPRN PRN (Reason: RIVERA, mild pain, or fever >101F) Qty: 0 0RF
aspirin 81 mg Tablet,Delayed Release (Dr/Ec)
81 mg PO DAILY
Visbiome 112.5 billion cell Capsule
1 cap PO HS
Discharge Orders:
Discharge Patient (As Directed); Ordered 12/08/24
Ordered By: Wilfrid Selby
Care Plan Goals
Care Plan Goals:
Problem: Readiness for enhanced knowledge related to diagnosis and treatment plan
Goal: Understand your diagnosis and treatment plan needs, including medications if applicable.
Instructions: Know your diagnosis, underlying causes and treatment plan options, including medications if applicable. Consult with your health care team to learn about your diagnosis and treatment plan, including medications if applicable.
Discharge Date and Time
Discharge Date/Time: 12/08/24 13:02
Print Language: GUINEAN
[2024-12-08 12:09] VITALS: BP 107/65
--- NOTE | 2024-12-08 13:01 | PTCARENOTE ---
IV and tele removed. Discharge instructions reviewed w/ pt. Verbalizes understanding. Belongings collected and sent w/ pt. Escorted via WC and staff assist. Discharged to home.
--- NOTE | 2024-12-08 14:19 | PN.CDI ---
CDI
- -
CDI:
Physician Documentation Request
Admit Date: 12/07/24 13:00
Dear Doctor Saeed,
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
Troponin 12/07 10:24 0.106
Please provide a diagnosis for the above lab abnormality:
Nonischemic myocardial injury
Type II NH demand ischemia
Other
Use of terms such as suspected, likely, concern for, or probable (associated with a specific diagnosis that is being evaluated, monitored, or treated as if it exists) are acceptable and can be coded in the inpatient setting, when documented at the
time of discharge.
Thank you,
Christina Mccauley RN BSN
CDI Specialist
tiger text
Please use your independent medical judgment in providing your response.
--- NOTE | 2024-12-09 12:26 | PN.CDI ---
CDI
- -
CDI:
Physician Documentation Request
Admit Date: 12/07/24 13:00
Dear Doctor Do,
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
Troponin 12/07 10:24 0.106
Please provide a diagnosis for the above lab abnormality:
Nonischemic myocardial injury
Type II TN demand ischemia
Other
Use of terms such as suspected, likely, concern for, or probable (associated with a specific diagnosis that is being evaluated, monitored, or treated as if it exists) are acceptable and can be coded in the inpatient setting, when documented at the
time of discharge.
Thank you,
Christina Mccauley RN BSN
CDI Specialist
tiger text
Please use your independent medical judgment in providing your response.
== END 2024-12-08 13:02 | disposition home or self-care (01) | DRG 243 ==
LOC: IVU 13:00
PROVIDERS: Nurse Practitioner Adult Health; ADMITTING PHYSICIAN Family Medicine; EMERGENCY PHYSICIAN Student in an Organized Health Care Education/Training Program; FAMILY PHYSICIAN Nurse Practitioner; OTHER PHYSICIAN Internal Medicine Cardiovascular Disease
PROC: 02HL3JZ Insertion of Pacemaker Lead into Left Ventricle, Percutaneous Approach (ICD-10-PCS; 2024-12-07)
PROC: 0JH607Z Insertion of Cardiac Resynchronization Pacemaker Pulse Generator into Chest Subcutaneous Tissue and Fascia, Open Approach (ICD-10-PCS; 2024-12-07)
PROC: 02H63JZ Insertion of Pacemaker Lead into Right Atrium, Percutaneous Approach (ICD-10-PCS; 2024-12-07)
PROC: 02HK3JZ Insertion of Pacemaker Lead into Right Ventricle, Percutaneous Approach (ICD-10-PCS; 2024-12-07)
DX: I44.1 Atrioventricular block, second degree (principal); I50.42 Chronic combined systolic (congestive) and diastolic (congestive) heart failure; I97.190 Other postprocedural cardiac functional disturbances following cardiac surgery; I5A Non-ischemic myocardial injury (non-traumatic); I11.0 Hypertensive heart disease with heart failure; R73.9 Hyperglycemia, unspecified; I49.3 Ventricular premature depolarization; I44.7 Left bundle-branch block, unspecified; N40.0 Benign prostatic hyperplasia without lower urinary tract symptoms; Z95.2 Presence of prosthetic heart valve; Z87.891 Personal history of nicotine dependence; Z85.46 Personal history of malignant neoplasm of prostate; Z79.82 Long term (current) use of aspirin; Z79.84 Long term (current) use of oral hypoglycemic drugs
CPT/HCPCS: 33208; 33225; 71045; 80048; 80053; 83735; 84484; 85025; 85027; 93005; 99284; C1730; C1769; C1887; C1892; C1898; C1900; C2621; Q9967